=== PATIENT | male | born 1950 | race Caucasian/White ===

== ENCOUNTER 2019-07-02 09:05 | Outpatient (CLI) | payer OTHER, SELFPAY ==
--- NOTE | 2019-07-02 10:24 | ONCRAD EPV_ITS ---
Radiation Oncology Established Patient Visit Patient: Mikalea MR#: [id number] : 1950> Age: 69> Sex: Male> Dictated by: Dr. Joaquin Armendariz Date of Service: 07/02/2019 Referring Physician(s) : Branden Cuellar Diagnosis: C61 - Malignant neoplasm of prostate, Diagnosed 11/23/2017 (Active) Radiotherapy to Date: Course: Prostate Treatment Site: [id number] Ref. ID: [id number] Energy: 6X Dose/Fx (cGy): 200 #Fx: / 27 Dose Correction (cGy): 0 Total Dose (cGy): 5,400 Start Date: 03/19/2018 End Date: 04/25/2018 Elapsed Days: 37 Course: Prostate Treatment Site: PTV80 Ref. ID: [id number] Energy: 6X Dose/Fx (cGy): 200 #Fx: 13 / 13 Dose Correction (cGy): 0 Total Dose (cGy): 2,600 Start Date: 04/26/2018 End Date: 05/14/2018 Elapsed Days: 18 Chief Complaint / History of Present Illness: The patient is a 67 year old gentleman with a recently diagnosed T1c, N0, M0 adenocarcinoma of the prostate, Schroeder score 3+4, PSA 10.4 ng/ml, intermediate risk disease. He is status post combination therapy with external beam radiation therapy and short-term hormonal therapy. The patient is doing well overall. Side effects from ADT have resolved. He notes nocturia ???4-5 and dribbling sometimes but denies dysuria, urinary urgency, frequency, weak stream, incontinence, hematuria, rectal irritation or bleeding. His PSA was 0.65 on 06/11/2018, 0.11 on 09/09/2018, 0.09 ng.ml on 02/03/2019 and 0.17 on 06/27/2019. Current Medications: Flonase Allergy Relief, lisinopril, triamcinolone Acetonide, vitamin D (Cholecalciferol). Allergies: No Known Allergies Current Complaints / Review of Systems: Constitutional - Complains of mild fatigue. Denies lack of appetite, fever and night sweats. Eyes - Denies blurred vision. ENMT - Complains of tinnitus. Denies dysphagia, ear pain, mouth dryness, stomatitis and altered taste. Neck - Denies neck pain. Integumentary - Denies rash. Cardiovascular - Denies arrhythmias and chest pain. Respiratory - Complains of cough due to sinus drainage. Complains of dyspnea associated with normal activity. Denies wheezing. Gastrointestinal - Denies abdominal pain, constipation, diarrhea, heartburn / dyspepsia, melena / GI bleeding, nausea and vomiting. Genitourinary (M) - Complains of frequency since Radiation Tx. and nocturia gets up about 4 to 5 times. Denies dysuria, incontinence but has occasional dribbling after finishing urination. and urgency. Musculoskeletal - Denies bone pain and joint pain. Neurologic - Denies dizziness, abnormal gait and headaches. Endocrine - Denies diabetes and thyroid disease.. Vital Signs: Performed on 07/02/2019 9:34 AM BMI - 31.796 kg/m2 (high), Height - 73.00 in, Weight - 241.0 lbs, Temperature - 98.5 f, Pulse - 81, Respiration - 20, O2 Sat - 95 % (low), Pain - 0 and BP - 132/ 82 mm(hg). Physical Exam: General: Alert and oriented x 3. No acute distress. HEENT: Normocephalic, atraumatic. Extraocular Movements Intact: Pupils Equal, Round, Reactive to Light and Accommodation: Sclerae anicteric. Oral cavity is clear without lesions, masses or ulcers. NECK: Supple without supraclavicular or jugular lymphadenopathy. LUNGS: Clear to auscultation bilaterally without rales, rhonchi or wheeze. HEART: Regular rate and rhythm, normal S1 and S2 without murmur, gallop or rub. MUSCULOSKELETAL: No tenderness or percussion pain over the axial skeleton, scapulae or pelvis. ABDOMEN: Soft, nontender, nondistended without masses or organomegaly. Bowel sounds are present. EXTREMITIES: No peripheral edema is identified. Limited motor and sensory examination are grossly intact and symmetric bilaterally. NEUROLOGIC: Cranial nerves II ???XII are grossly intact. Normal sensation, strength 5/5 in all extremities, normal gait, no ataxia. Performance Status: 0 - Fully active, able to carry on all predisease activities without restrictions. (ECOG) Lab: PSA 0.17 ng/ml on 06/27/2019 Pathology: adenocarcinoma of prostate, GS 3+4 Impression/plan: There is no clinical evidence of recurrence or late radiation toxicities. We will continue cancer surveillance. We will check his PSA in 4-6 months and he will follow up with us afterwards. Signed by: 07/02/2019 12:59:01 PM <<Signature on File>> CPT Code: CPT Code: Signed By: Dr. Joaquin Armendariz, 07/02/2019 12:59:01 PM <<Signature on File>>
== END 2019-07-02 09:06 | disposition home or self-care (01) ==
LOC: ONCMED 09:07
PROVIDERS: Family Provider Nurse Practitioner; PCP Internal Medicine; Visit Provider Radiology Radiation Oncology
DX: C61 Malignant neoplasm of prostate (principal); Z92.3 Personal history of irradiation
CPT/HCPCS: 99213

== ENCOUNTER → 2019-10-14 13:04 | Outpatient (BNVA) | payer OTHER, SELFPAY | PROVIDERS: Family Provider Nurse Practitioner; PCP Nurse Practitioner; Referring Provider Nurse Practitioner; Visit Provider Urology | DX: C61 Malignant neoplasm of prostate (principal); N20.1 Calculus of ureter; N40.1 Benign prostatic hyperplasia with lower urinary tract symptoms; N39.41 Urge incontinence | CPT/HCPCS: 81001 ==

== ENCOUNTER 2020-01-01 08:56 | Outpatient (CLI) | payer OTHER, SELFPAY ==
--- NOTE | 2020-01-01 12:04 | ONCRAD EPV_ITS ---
Radiation Oncology Established Patient Visit Patient: Giovanny Lockwood MR#: [id number] : 1950 Age: 69 Sex: Male Dictated by: Dr. Casey Brito Date of Service: 01/01/2020 Referring Physician(s) : Branden Cuellar Diagnosis: C61 - Malignant neoplasm of prostate, Diagnosed 11/23/2017 (Active) Radiotherapy to Date: Course: Prostate, Treatment Site: PTV54, Ref. ID: [id number], Energy: 6X, Dose/Fx (cGy): 200, #Fx: 27 / 27, Dose Correction (cGy): 0, Total Dose (cGy): 5,400, Start Date: 03/19/2018, End Date: 04/25/2018, Elapsed Days: 37 Prostate, Treatment Site: PTV80, Ref. ID: [id number], Energy: 6X, Dose/Fx (cGy): 200, #Fx: 13 / 13, Dose Correction (cGy): 0, Total Dose (cGy): 2,600, Start Date: 04/26/2018, End Date: 05/14/2018, Elapsed Days: 18 Chief Complaint / History of Present Illness: The patient is a 69-year-old male with intermediate risk prostate cancer who was treated with short course androgen deprivation therapy and definitive radiation therapy as described above. Completed radiation therapy in April 2018, and in follow-up today he reports no persistent diarrhea, no bloody stools, no bone pain, and no worsening urinary symptoms. International prostate symptom score was completed today revealing a total score of 17 indicating moderate urinary symptoms. The patient reports that he is mixed with respect to his quality of life due to urinary symptoms. The patient's most recent PSA is 0.4 ng/mL (December 11, 2019 as ordered by [facility], Stella See, Nurse Practitioner). Current Medications: Flonase Allergy Relief, lisinopril, tamsulosin HCl, triamcinolone Acetonide, vitamin D (Cholecalciferol). Allergies: No Known Allergies Current Complaints / Review of Systems: Constitutional - Complains of mild fatigue. Denies lack of appetite, fever and night sweats. Eyes - Denies blurred vision and double vision. ENMT - Complains of tinnitus. Denies dysphagia, ear pain, mouth dryness, stomatitis and altered taste. Neck - Denies neck pain and decreased range of motion. Integumentary - Denies rash. Cardiovascular - Denies arrhythmias, chest pain and edema. Respiratory - Complains of cough occasionally related to sinus drainage. Denies dyspnea and wheezing. Gastrointestinal - Denies abdominal pain, constipation, diarrhea, heartburn / dyspepsia, hemorrhoids, melena / GI bleeding, nausea and vomiting. No rectal bleeding or irritation. Genitourinary (M) - Complains of frequency but started on Flomax 0.4 mg in October 2019. Complains of impotence associated with radiation therapy. Complains of nocturia gets up about 4 to 5 times per night. Denies dysuria and urgency. Musculoskeletal - Denies bone pain, joint pain and muscle weakness. Neurologic - Complains of intermittent dizziness that occurs upon sitting to standing associated with medications. Denies abnormal gait and headaches. Endocrine - Denies diabetes, hot flashes and thyroid disease. Hematologic/Lymphatic - Denies tender or enlarged lymph nodes.. Vital Signs: Performed on 01/01/2020 9:26 AM BMI - 31.084 kg/m2 (high), Height - 73.00 in, Weight - 235.6 lbs, Temperature - 98.0 f, Pulse - 82, Respiration - 20, O2 Sat - 94 % (low), Pain - 0 and BP - 130/ 76 mm(hg). Physical Exam: General: Alert and oriented x 3. No acute distress. HEENT: Normocephalic, atraumatic. Extraocular Movements Intact: Pupils Equal, Round, Reactive to Light and Accommodation: Sclerae anicteric. NECK: Supple without supraclavicular or jugular lymphadenopathy. LUNGS: Clear to auscultation bilaterally without rales, rhonchi or wheeze. HEART: Regular rate and rhythm, normal S1 and S2 without murmur, gallop or rub. EXTREMITIES: No peripheral edema is identified. Limited motor and sensory examination are grossly intact and symmetric bilaterally. NEUROLOGIC: Cranial nerves II ???XII are grossly intact. Normal sensation, strength 5/5 in all extremities, normal gait, no ataxia. Performance Status: 0 - Fully active, able to carry on all predisease activities without restrictions. (ECOG) Lab: None pending. Pathology: Primary, c61 - malignant neoplasm of prostate, Diagnosed 11/23/2017 (active). Imaging: See HPI Impression: The patient is a 69-year-old male with intermediate risk prostate cancer who was treated with short course androgen deprivation therapy followed by definitive radiation therapy which completed in April 2018. In follow-up today the patient shows no evidence of biochemical failure. I recommend continuing to follow-up with a medical care provider every 6 months with a repeat PSA, and these laboratory values are to be shared with us. [facility] draws[facility] The patient is scheduled to see Dr. Callejas on ~January 13. The patient may follow-up with us in 1 year. Signed by: 01/01/2020 12:03:31 PM <<Signature on File>> Time spent with patient: CPT Code: CPT Code:
== END 2020-01-01 08:57 | disposition home or self-care (01) ==
LOC: ONCMED 08:59
PROVIDERS: PCP Nurse Practitioner; Visit Provider Radiology Radiation Oncology
DX: C61 Malignant neoplasm of prostate (principal); Z92.3 Personal history of irradiation; Z92.23 Personal history of estrogen therapy
CPT/HCPCS: 99213; 99214

== ENCOUNTER → 2020-01-14 09:17 | Outpatient (BNVA) | payer OTHER, SELFPAY | PROVIDERS: PCP Nurse Practitioner; Visit Provider Urology | DX: N40.1 Benign prostatic hyperplasia with lower urinary tract symptoms (principal); R35.0 Frequency of micturition; N39.41 Urge incontinence; Z85.46 Personal history of malignant neoplasm of prostate | CPT/HCPCS: 81001 ==

== ENCOUNTER → 2020-05-17 09:15 | Outpatient (BNVA) | payer OTHER, SELFPAY | PROVIDERS: PCP Nurse Practitioner; Visit Provider Urology | DX: R35.0 Frequency of micturition (principal); C61 Malignant neoplasm of prostate; N39.41 Urge incontinence; R35.8 Other polyuria | CPT/HCPCS: 81003 ==

== ENCOUNTER → 2020-11-15 09:15 | Outpatient (BNVA) | payer OTHER, SELFPAY | PROVIDERS: PCP Nurse Practitioner; Visit Provider Urology | DX: C61 Malignant neoplasm of prostate (principal); R35.0 Frequency of micturition; N39.41 Urge incontinence; R35.8 Other polyuria; F17.210 Nicotine dependence, cigarettes, uncomplicated | CPT/HCPCS: 81003; G0103 ==

== ENCOUNTER → 2021-02-03 08:07 | Outpatient (BNVA) | payer OTHER, SELFPAY | PROVIDERS: PCP Nurse Practitioner; Visit Provider Surgery | DX: Z20.822 Contact with and (suspected) exposure to COVID-19 (principal) | CPT/HCPCS: 87635 ==

== ENCOUNTER → 2021-02-04 15:23 | Outpatient (BNVA) | payer OTHER, SELFPAY | PROVIDERS: PCP Nurse Practitioner; Visit Provider Surgery | DX: Z86.010 Personal history of colon polyps (principal); Z20.822 Contact with and (suspected) exposure to COVID-19 | CPT/HCPCS: 87635 ==

== ENCOUNTER 2021-02-09 07:50 | Day surgery (SDC) | payer OTHER, SELFPAY ==
[2021-02-07 13:35] VITALS: BMI 30.3
--- NOTE | 2021-02-09 08:15 | ANES.PREANE2 ---
Pre-Anesthetic Assessment Pre-Anesthetic Assessment: Height/Weight: Height 1.85 m Weight 104.326 kg Preop Diagnosis: colon polyps Proposed Procedure: Operation Date: 02/09/21 09:45 Proposed Procedures p Colonoscopy 77583 z86.010(Not Applicable) - Vidal Nazario MD Familial anesthetic complications: None Was Beta Collins taken within 24 hours: N/A Was Clonidine taken within 24 hours: N/A Last intake: > 8 hrs Social: Social History: Tobacco and No alcohol Exam: Pre-Anes Outpt Exam: alert, oriented x 3, clear to auscultation bilaterally and regular rate & rhythm Airway: Cervical ROM: WNL MP: 4 Dentition: Chipped Pulmonary: Pulmonary: COPD CV/HEM: CV/HEM: HTN Anesthetic Plan: ASA status: 2 Anesthesia: MAC Risk of > 500 ml blood loss (7ml/kg in children): No PFSH Anesthesia PFSH: Medical History BPH NOS w ur obs/LUTS H/O prostate cancer Hypertension Urgency incontinence Surgical History H/O colonoscopy H/O prostate biopsy Family History Mother , 86 Cancer Colon Father , 76 Dementia Social History Smoking and tobacco status: current every day smoker Alcohol intake: never Marital status: Current occupational status: retired History of recent travel: No Data Anesthesia Cardiac Studies: No Data to Display
[2021-02-09 08:42] VITALS: BP 120/82; PULSE 79; RESP 18; TEMP 36.8
[2021-02-09] MEDS: sodium chloride 0.9% 1,000 ML 30 ML IV (09:11)
--- NOTE | 2021-02-09 10:16 | P.HP_ITS ---
Same Day Surgery H&P Indication for Procedure/HPI DATE OF PROCEDURE: February 09, 2021 CHIEF COMPLAINT/INDICATIONFOR SURGICAL PROCEDURE: Had polyps before PREOP DIAGNOSIS: History of colon polyps PLANNED PROCEDRUE: Operation Date: 02/09/21 09:45 Proposed Procedures p Colonoscopy 42941 z86.010(Not Applicable) - Vidal Nazario MD This is a pleasant 70 years old gentleman well-known to me from previous clinical encounters as he did undergo back in 2019 colonoscopy and found to have multiple polyps. Patient denies currently bleeding per rectum or history of weight loss. He is well-known with history of prostate cancer that undergone treatment for that. Patient comes today to discuss surveillance colonoscopy. Interim history 02/09/2021 Patient comes today for surveillance colonoscopy ROS All systems have been reviewed negative except as per the above or per problem list Medications/Allergies* Home Medications Medication Instructions Recorded Confirmed Type fluticasone furoate 27.5 1 spray INTRANASAL DAILY 10/14/19 02/09/21 History mcg/actuation nasal spray,suspension lisinopril 20 mg tablet 20 mg PO DAILY 10/14/19 02/09/21 History triamcinolone acetonide 0.1 % 1 applic TOPICAL DAILY 10/14/19 02/09/21 History topical cream albuterol sulfate 90 mcg/actuation 1 inh INHALATION QID 12/16/20 02/09/21 History aerosol inhaler budesonide-formoterol HFA 160 2 puff INHALATION BID 12/16/20 02/09/21 History mcg-4.5 mcg/actuation aerosol inhaler Allergies/Adverse Reactions Allergy/AdvReac Type Severity Reaction Status Date / Time tamsulosin Allergy Unknown Verified 02/09/21 10:17 Current Medications: Generic Name Dose Route Start Last Admin Trade Name Freq PRN Reason Stop Dose Admin Sodium Chloride 1,000 mls @ 30 mls/hr 02/09/21 08:30 02/09/21 09:11 Sodium Chloride 0.9% IV 02/10/21 08:29 30 mls/hr .Q24H JAZZ Administration Pertinent History/Comorbid Conditions* Medical History (Updated 12/18/20 @ 16:36 by Vidal Nazario MD) BPH NOS w ur obs/LUTS H/O prostate cancer Hypertension Urgency incontinence Surgical History (Updated 05/17/20 @ 09:34 by Trip Callejas MD) H/O colonoscopy H/O prostate biopsy Family History (Updated 10/14/19 @ 13:01 by Genna De La Paz RN) Father, 76 Mother, 86 Dementia Father Cancer Mother Colon Social History Smoking and tobacco status: current every day smoker Alcohol intake: never Marital status: Current occupational status: retired History of recent travel: No Pertinent Exam Findings alert, oriented x 3, clear to auscultation bilaterally, regular rate & rhythm and procedure specific exam findings (Abdominal examination nontender nondistended soft) Recommendations Surgery/Procedure today (Colonoscopy with possible biopsy) Other Plans: Plan of care; After thorough history and physical examination and reviewing the chart, plan to perform surgery surveillance colonoscopy. I discussed with the patient in details the risks,benefits,alternatives and indications.The risk of aspiration, bleeding, soft tissue injury, perforation of the colon and other potential concomitant complications were explained to the patient in details,also the potential need for Laproscoy/Laparotomy to repair any related complications including but not limited to colectomy and or Closotomy.The patient understood this well and did agree to proceed. Rationale was carefully and clearly discussed with the patient.Appropriate informed consent have been reviewed and signed All questions have been answered and all concerns have been addressed to patient's satisfaction. Verbal and written Instructions were given to the patient for colonoscopy prep Coding Level of Care Code Acute Human Resources Benefits Specialist for Marleni Herbert
[2021-02-09 10:43] VITALS: BP 119/81; PULSE 66; RESP 16; TEMP 36.1; O2SAT 95
[2021-02-09 10:55] VITALS: BP 138/74; PULSE 65; RESP 18; O2SAT 95
--- NOTE | 2021-02-09 13:40 | ANE.PACU2 ---
Inpatient post-anesthesia follow up: Airway intact: Yes Vital signs: Temperature 97.0 F Pulse Rate 65 Respiratory Rate 18 Blood Pressure 138/74 Pulse Oximetry 95 Oxygen Delivery Me thod Room Air Oxygen Flow Rate Fraction of Inspir ed Oxygen Hydration adequate: Yes Nausea and vomiting: No Pain level: 2 Mental status: Baseline
== END 2021-02-09 11:20 | disposition home or self-care (01) ==
PROVIDERS: PCP Nurse Practitioner; Visit Provider Surgery
PROC: 0DJD8ZZ Inspection of Lower Intestinal Tract, Via Natural or Artificial Opening Endoscopic (ICD-10-PCS; CPT 45378; principal; 2021-02-09 09:45)
DX: Z12.11 Encounter for screening for malignant neoplasm of colon (principal); Z86.010 Personal history of colon polyps; D12.2 Benign neoplasm of ascending colon; K57.30 Diverticulosis of large intestine without perforation or abscess without bleeding; D12.8 Benign neoplasm of rectum; N40.1 Benign prostatic hyperplasia with lower urinary tract symptoms; N13.8 Other obstructive and reflux uropathy; Z85.46 Personal history of malignant neoplasm of prostate; I10 Essential (primary) hypertension; F17.210 Nicotine dependence, cigarettes, uncomplicated
CPT/HCPCS: 45380; 45385; 88305; 96360; 96361; J2704; J7030

== ENCOUNTER → 2021-05-18 09:28 | Outpatient (BNVA) | payer OTHER, SELFPAY | PROVIDERS: PCP Nurse Practitioner; Visit Provider Urology | DX: R97.20 Elevated prostate specific antigen [PSA] (principal); R35.0 Frequency of micturition; C61 Malignant neoplasm of prostate | CPT/HCPCS: 81003; 84153 ==

== ENCOUNTER → 2022-01-26 12:50 | Outpatient (BNVA) | payer OTHER, SELFPAY | PROVIDERS: PCP Nurse Practitioner; Visit Provider Urology | DX: C61 Malignant neoplasm of prostate (principal); R35.0 Frequency of micturition | CPT/HCPCS: 81003; 99213 ==

== ENCOUNTER 2022-07-31 02:54 | Emergency (ER) | payer OTHER, SELFPAY ==
[2022-07-31 02:57] VITALS: BP 122/68; PULSE 91; RESP 18; TEMP 36.7; O2SAT 92; BMI 30.3
--- NOTE | 2022-07-31 03:41 | CTR_ITS ---
PROCEDURE INFORMATION: Exam: CT Thoracic Spine Without Contrast Exam date and time: 07/31/2022 4:33 AM Age: 72 years old Clinical indication: Numbness; Pain in thoracic spine; Patient HX: HX prostate CA; Additional info: Upper back pain, paresthesias TECHNIQUE: Imaging protocol: Computed tomography of the thoracic spine without contrast. Radiation optimization: All CT scans at this facility use at least one of these dose optimization techniques: automated exposure control; mA and/or kV adjustment per patient size (includes targeted exams where dose is matched to clinical indication); or iterative reconstruction. Other protocol: This patient has received 0 known CTs and 0 known cardiac nuclear medicine studies in the 12 months prior to the current study. COMPARISON: CR (CHEST, ) 07/31/2022 4:20 AM RADIATION DOSE METRICS: Total DLP (mGy-cm): 930 FINDINGS: Bones/joints: Mild scoliosis. Moderate diffuse thoracic degenerative change. No acute fracture or aggressive bone lesion visualized. There is paraspinal prevertebral soft tissue prominence in the upper thoracic spine. See series 4, image 37. Soft tissues: Unremarkable. Vasculature: Advanced diffuse vascular calcification noted. Large pulmonary arteries. Partially imaged retroaortic left renal vein. Lungs: [id number]-[id number] COPD. Left suprahilar mass is present, which measures up to about 5.2 x 4.3 cm. There is also, peripheral to this, left upper lobe tubular opacity which may be due to endobronchial plugging or neoplastic extension. Liver: Few minute hepatic hypodensities, too small to characterize. Adrenal glands: Bilateral adrenal nodularity. This has the appearance of hyperplasia. A few lipid rich adenomas are also likely. Other findings: Small hiatal hernia. CT/CT thoracic spin wo con* [id number] IMPRESSION: 1. Large left suprahilar mass may be a bronchogenic carcinoma or metastatic lesion. 2. Large upper thoracic prevertebral masses as described, which may be due to pleural metastases, extramedullary hematopoiesis, or other neoplastic process. An MRI thoracic spine should be considered to work this up and to assess for any intrathecal/epidural involvement or extension. 3. COPD, atherosclerosis, and other chronic findings. 4. No acute fracture visualized.
--- NOTE | 2022-07-31 03:41 | XRR_ITS ---
PROCEDURE INFORMATION: Exam: XR Chest Exam date and time: 07/31/2022 4:20 AM Age: 72 years old Clinical indication: Pain; Chest pressure; Additional info: Upper back pain TECHNIQUE: Imaging protocol: Radiologic exam of the chest. Views: 1 view. COMPARISON: CT abdomen pelvis wo/w [id number] 01/08/2018 9:42 AM FINDINGS: Lungs: [id number] COPD likely hyperexpansion. Lung base atelectasis or scarring. Pleural spaces: Unremarkable. No pleural effusion. No pneumothorax. Heart/Mediastinum: The heart is normal size. Left hilar prominence. Bones/joints: Unremarkable. XR/XR chest 1V portable [id number] IMPRESSION: 1. Left hilar prominence, with no priors. Left hilar mass lesion possible. Consider need for CT chest. Advise correlation. 2. COPD.
--- NOTE | 2022-07-31 03:54 | ECG_ITS ---
[facility] Test Date: 2022-07-31 Pat Name: Giovanny Lockwood Department: Room: Gender: Male Pedorthist: : 1950 Requested By: Bird Abdul Order Number: [id number] Joseph MD: Reny No M.D. Measurements Intervals [place] Rate: 84 P: 85 VA: 182 QRS: -69 QRSD: 114 T: 65 QT: 345 QTc: 408 Interpretive Statements SINUS RHYTHM WITH SINUS ARRHYTHMIA INCOMPLETE RIGHT BUNDLE BRANCH BLOCK [90+ ms QRS DURATION, TERMINAL R IN V1/V2, 40+ ms S IN I/aVL/V4/V5/V6] LEFT ANTERIOR FASCICULAR BLOCK [QRS AXIS <= -45, QR IN I, RS IN II] No previous ECG available for comparison Electronically Signed On 07-31-2022 21:56:33 SOCK IRONER by Reny No M.D. [email or web address]
[2022-07-31 03:57] VITALS: BP 115/70; PULSE 87; RESP 15; O2SAT 91
[2022-07-31 04:08] LABS: Basophils # 0.1 10^3/uL (0.0-0.1); Basophils % 0.8 %; Eosinophils # 0.2 10^3/uL (0.0-0.8); Eosinophils % 2.5 %; Hematocrit 50.2 % (42.0-52.0); Hemoglobin 17.1 g/dL (11.7-16.6); Lymphocytes # 1.3 10^3/uL (0.8-4.8); Lymphocytes % 16.7 %; Mean Corpuscular HGB Conc 34.1 g/dL (30.0-36.0); Mean Corpuscular Hemoglobin 32.5 pg (28.0-34.0); Mean Corpuscular Volume 95.4 fl (80-94); Mean Platelet Volume 10.6 fL (7.4-10.4); Monocytes # 0.7 10^3/uL (0.2-0.9); Monocytes % 8.6 %; Neutrophils # 5.45 10^3/uL (1.8-7.7); Nucleated Red Blood Cells % 0 %; Platelet Count 165 10^3/cmm (130-400); Red Blood Count 5.26 10^6/uL (4.1-5.3); Red Cell Distribution Width 11.9 % (12.1-15.1); White Blood Count 7.7 10^3/uL (4.0-10.0)
--- NOTE | 2022-07-31 04:30 | ED_ITS ---
HPI - Back Pain/Injury General: Chief Complaint: Back Pain/Injury Stated Complaint: BackPain\Losing Balance Time Seen by Provider: 07/31/22 03:14 Source: patient and family History of Present Illness: 72-year-old male here complaining of pain between his shoulder blades in his back for the last several days. He denies any injury. Denies significant shortness of breath or other chest pain. He awoke this morning at some point, noticed that his legs felt like they were numb and tingly. He has not lost sensation completely at all and can still feel. He notes that he almost fell because of balance problems. That is why he decided to come to the emergency department. He is not overly short of breath. He denies significant cough. He continues to complain of mid back pain between his shoulders. No groin numbness. No loss of control of bowel or bladder function. MD elicited complaint: back pain Pertinent past history: other Onset (ago): day(s) Timing: constant Severity: moderate Similar Symptoms Previously: No Quality: stabbing and aching Location: thoracic spine Radiation: none Exacerbating factors: movement Relieving factors: none Associated symptoms: Reports tingling/numbness/burning; Deny abdominal pain, chills, change in bowel habits, fecal incontinence, fever(s), nausea, urinary frequency or vomiting Review of Systems Const: Denies: fever(s) or chills ENMT: Denies: throat pain Card: Denies: chest pain Resp: Denies: dyspnea GI: Denies: abdominal pain, nausea, vomiting, fecal incontinence or change in bowel habits : Denies: flank pain or difficulty urinating Musc: Reports: back pain Skin/Breast: Denies: rash Neuro: Denies: headache(s) PFS ED PFSH: Medical History BPH NOS w ur obs/LUTS H/O prostate cancer Hypertension Urgency incontinence Surgical History H/O colonoscopy H/O prostate biopsy Family History Mother , 86 Cancer Colon Father , 76 Dementia Social History (Reviewed 07/31/22 @ 04:32 by ELOISA Toussaint Smoking and tobacco status: current some day smoker Alcohol intake: never Marital status: Current occupational status: retired History of recent travel: No Physical Exam Const: GENERAL APPEARANCE: ill appearing (Mildly); not frail appearing HENMT: COMMON NORMALS: normocephalic, atraumatic and Normal external nose present HEAD & SCALP: normocephalic and atraumatic FACE & SINUS: normal facial exam and face symmetric NOSE: Normal external nose present Eye: COMMON NORMALS: Equal, round and reactive pupils present and EOMs intact bilaterally PUPIL: Yes Equal, round and reactive pupils present Neck/C-Spine: GENERAL: Yes trachea midline Chest: CHEST: Yes Symmetrical chest wall rise Resp: COMMON NORMALS: normal respiratory effort, No use of accessory muscles and clear to auscultation bilaterally AUSCULTATION: clear to auscultation bilaterally Cardio: COMMON NORMALS: regular rate and regular rhythm RATE: regular rate RHYTHM: regular rhythm GI: COMMON NORMALS: Normal to inspection, nondistended, normoactive bowel sounds present, Soft to palpation and non-tender PALPATION: Yes Soft to palpation Back/Pelvis: OTHER: Examination reveals no deformity of the spine. There is no reproducible tenderness. Leg raise testing does not increase pain or cause radicular pain down the legs. Extremity: NARRATIVE EXTREMITY EXAM: Sensation is grossly intact to touch to the bilateral lower extremities. There is mild edema present. There are changes of stasis dermatitis of the skin. Neuro: SIMA COMA SCALE: document GCS findings Sima coma scale eye opening: Spontaneous Matthews coma scale verbal response: Orientated Sima coma scale motor response: Obey commands Matthews coma scale total score: 15 OTHER: See above Psych: COMMON NORMALS: mental status grossly normal and cooperative Course Vital Signs: Vital signs: Vital Signs Temperature 98.0 F 07/31/22 02:57 Pulse Rate 87 07/31/22 03:57 Respiratory Rate 15 07/31/22 03:57 Blood Pressure 115/70 07/31/22 03:57 Pulse Oximetry 91 07/31/22 03:57 Oxygen Delivery Me thod 07/31/22 03:57 MDM - Back Pain/Injury Medical Decision Making 72-year-old male with thoracic back pain. He notes that the paresthesias are essentially gone in his feet. He is at his baseline he says in terms of his oxygen. His oxygen saturations on room air 91 to 92%. He is a longtime smoker. Hemoglobin is 17.1. White blood cell count of 7. His D-dimer was significantly elevated. Delta troponin is normal. His CRP is 3. CT of the chest reveals no PE, but a large left suprahilar mass suggestive of lung cancer. He has thoracic prevertebral masses as well. This is likely the cause of his back pain. With resolution of his paresthesias, baseline oxygen status, the patient will be allowed discharge. He is counseled on his diagnosis. We will ask our director of casework services to obtain him appointments with chest surgery for outpatient follow-up of the mass. Labs 07/31/22 03:53 07/31/22 03:53 Radiology Impressions Chest X-Ray 07/31/22 03:41 IMPRESSION: 1. Left hilar prominence, with no priors. Left hilar mass lesion possible. Consider need for CT chest. Advise correlation. 2. COPD. Thoracic Spine CT 07/31/22 03:41 IMPRESSION: 1. Large left suprahilar mass may be a bronchogenic carcinoma or metastatic lesion. 2. Large upper thoracic prevertebral masses as described, which may be due to pleural metastases, extramedullary hematopoiesis, or other neoplastic process. An MRI thoracic spine should be considered to work this up and to assess for any intrathecal/epidural involvement or extension. 3. COPD, atherosclerosis, and other chronic findings. 4. No acute fracture visualized. Chest CTA 07/31/22 04:35 IMPRESSION: 1. Left upper lobe pulmonary mass and upper thoracic paravertebral soft tissue mass consistent with malignancy. 2. Negative for pulmonary embolism. Laboratory Results WBC 7.7 10^3/uL (4.0-10.0) 07/31/22 03:53 RBC 5.26 10^6/uL (4.1-5.3) 07/31/22 03:53 Hgb 17.1 g/dL (11.7-16.6) H 07/31/22 03:53 Hct 50.2 % (42.0-52.0) 07/31/22 03:53 MCV 95.4 fl (80-94) H 07/31/22 03:53 MCH 32.5 pg (28.0-34.0) 07/31/22 03:53 MCHC 34.1 g/dL (30.0-36.0) 07/31/22 03:53 RDW 11.9 % (12.1-15.1) L 07/31/22 03:53 Plt Count 165 10^3/cmm (130-400) 07/31/22 03:53 MPV 10.6 fL (7.4-10.4) H 07/31/22 03:53 Neut % (Auto) 71.0 % 07/31/22 03:53 Lymph % (Auto) 16.7 % 07/31/22 03:53 [place] % (Auto) 8.6 % 07/31/22 03:53 Eos % (Auto) 2.5 % 07/31/22 03:53 Baso % (Auto) 0.8 % 07/31/22 03:53 Neut # (Auto) 5.45 10^3/uL (1.8-7.7) 07/31/22 03:53 Lymph # (Auto) 1.3 10^3/uL (0.8-4.8) 07/31/22 03:53 [place] # (Auto) 0.7 10^3/uL (0.2-0.9) 07/31/22 03:53 Eos # (Auto) 0.2 10^3/uL (0.0-0.8) 07/31/22 03:53 Baso # (Auto) 0.1 10^3/uL (0.0-0.1) 07/31/22 03:53 Nucleated RBC % (auto) 0 % 07/31/22 03:53 Nucleated RBCs # 0.0 /100WBC 07/31/22 03:53 D-Dimer 2.40 ug/mIFEU (0-0.59) H 07/31/22 03:53 Sodium 134 mmol/L (136-145) L 07/31/22 03:53 Potassium 4.4 mmol/L (3.5-5.1) 07/31/22 03:53 Chloride 98 mmol/L (98-107) 07/31/22 03:53 Carbon Dioxide 25 mmol/L (22-29) 07/31/22 03:53 Anion Gap 15.4 (5-19) 07/31/22 03:53 BUN 10 mg/dL (8-23) 07/31/22 03:53 Creatinine 0.8 mg/dL (0.7-1.2) 07/31/22 03:53 GFR Calculation Not Reportable 07/31/22 03:53 Glucose 113 mg/dL (65-115) 07/31/22 03:53 Calculated Osmolality 278 mOsm/kg (285-295) L 07/31/22 03:53 Calcium 9.9 mg/dL (8.5-10.5) 07/31/22 03:53 Total Bilirubin 0.7 mg/dL (0.15-1.2) 07/31/22 03:53 AST 20 U/L (0-40) 07/31/22 03:53 ALT 18 U/L (0-41) 07/31/22 03:53 Alkaline Phosphatase 86 U/L (40-130) 07/31/22 03:53 Troponin T Baseline 12 ng/L (0-15) 07/31/22 03:53 Troponin T 120 Minute 11.97 ng/L (0-15) 07/31/22 06:01 Delta Troponin T -0.03 ABS# (0-10) L 07/31/22 06:01 C-Reactive Protein 3.0 mg/L (0.0-4.9) 07/31/22 03:53 NT-Pro-B Natriuret Pep 36 pg/mL (0-125) 07/31/22 03:53 Total Protein 7.0 g/dL (6.6-8.7) 07/31/22 03:53 Albumin 4.4 g/dL (3.5-5.2) 07/31/22 03:53 Globulin 2.6 g/dL (1.3-4.6) 07/31/22 03:53 Discharge Plan Discharge Patient Disposition: Home Clinical Impression: Lung mass Condition: Stable Prescriptions: New hydrocodone-acetaminophen 5-325 mg tablet 1 tab PO Q8H PRN (Reason: pain) Qty: 12 0RF No Action albuterol sulfate [ProAir HFA] 90 mcg/actuation HFA aerosol inhaler 1 inh inhalation QID lisinopril 20 mg tablet 20 mg PO DAILY Flonase Sensimist 27.5 mcg/actuation spray,suspension 1 spray INTRANASAL DAILY triamcinolone acetonide 0.1 % cream 1 applic TOPICAL DAILY fluticasone propion-salmeterol 250-50 mcg/dose blister with device 1 inh inhalation BID Discharge Orders: Discharge ED (Routine); Ordered 07/31/22 Ordered By: Bird Mcmullen Referrals: Stella See FNP [Primary Care Provider] - 1-3 days Patient Instructions: Back Pain (ED), Opioid Safety, Pain Management Activity Restrictions/Additional Instructions: Return for fever, worsening pain despite treatment, weakness to the legs, other concerning symptoms. Our case management will attempt to get you an appointment with chest surgery for follow-up. You should hear from her early this week. Follow-up with your doctor later this week. Coding Level of Care Code ED Clamshell Engineer for Marleni Herbert
--- NOTE | 2022-07-31 04:35 | CTR_ITS ---
PROCEDURE INFORMATION: Exam: CTA Chest With Contrast Exam date and time: 07/31/2022 5:48 AM Age: 72 years old Clinical indication: Pain; Chest pressure; Additional info: Chest pain, upper back pain TECHNIQUE: Imaging protocol: Computed tomographic angiography of the chest with contrast. 3D rendering (Not supervised by radiologist): MIP and/or 3D reconstructed images were created by the technologist. Radiation optimization: All CT scans at this facility use at least one of these dose optimization techniques: automated exposure control; mA and/or kV adjustment per patient size (includes targeted exams where dose is matched to clinical indication); or iterative reconstruction. Contrast material: OMNI 350; Contrast volume: 100 ml; Contrast route: INTRAVENOUS (IV); Other protocol: This patient has received [address] and 0 known cardiac nuclear medicine studies in the 12 months prior to the current study. COMPARISON: CR (CHEST, ) 07/31/2022 4:20 AM RADIATION DOSE METRICS: Total DLP (mGy-cm): 536.01 FINDINGS: Pulmonary arteries: Normal. No pulmonary emboli. Aorta: Unremarkable. No aortic aneurysm. No aortic dissection. Lungs: Medial left upper lobe perihilar mass with circumscribed lobulated borders measures about 6.5 cm x 4.1 cm in the transaxial plane. Left upper lobe endobronchial obstruction with diffuse secretions partially filling the more central left upper lobe bronchi. Pleural spaces: Unremarkable. No pneumothorax. No pleural effusion. Heart: Unremarkable. No cardiomegaly. No pericardial effusion. Lymph nodes: Unremarkable. No enlarged lymph nodes. Bones/joints: Upper thoracic paravertebral soft tissue mass centered at T3 and T4. Osseous mineralization pattern is unremarkable. No focal lytic destructive bone lesion. No fracture. Soft tissues: Unremarkable chest wall soft tissues. CT/CT angio chest PE protcl [id number] IMPRESSION: 1. Left upper lobe pulmonary mass and upper thoracic paravertebral soft tissue mass consistent with malignancy. 2. Negative for pulmonary embolism.
[2022-07-31 04:39] LABS: Alanine Aminotransferase 18 U/L (0-41); Albumin Level 4.4 g/dL (3.5-5.2); Alkaline Phosphatase 86 U/L (40-130); Anion Gap 15.4 (5-19); Aspartate Amino Transferase 20 U/L (0-40); Blood Urea Nitrogen 10 mg/dL (8-23); Calcium 9.9 mg/dL (8.5-10.5); Carbon Dioxide 25 mmol/L (22-29); Chloride 98 mmol/L (98-107); Creatinine Clr Calc Pharmacy 105.8609; Globulin 2.6 g/dL (1.3-4.6); Glucose 113 mg/dL (65-115); NT Pro B Type Natriuretic Pept 36 pg/mL (0-125); Osmolality Calculated 278 mOsm/kg (285-295); Potassium 4.4 mmol/L (3.5-5.1); Sodium 134 mmol/L (136-145); Total Bilirubin 0.7 mg/dL (0.15-1.2)
[2022-07-31 04:40] LABS: Troponin(5th) Baseline 12 ng/L (0-15)
[2022-07-31] MEDS: iohexol 350 mg/mL 500 mL Btl (per mL) IV (04:58)
--- NOTE | 2022-07-31 05:42 | ECG_ITS ---
[facility] Test Date: 2022-07-31 Pat Name: Giovanny Lockwood Department: Room: Gender: Male Php Mysql Web Developer: : 1950 Requested By: Bird Abdul Order Number: [id number] Joseph MD: Reny No M.D. Measurements Intervals [place] Rate: 88 P: 83 NH: 172 QRS: -63 QRSD: 111 T: 62 QT: 349 QTc: 424 Interpretive Statements SINUS RHYTHM INCOMPLETE RIGHT BUNDLE BRANCH BLOCK [90+ ms QRS DURATION, TERMINAL R IN V1/V2, 40+ ms S IN I/aVL/V4/V5/V6] LEFT ANTERIOR FASCICULAR BLOCK [QRS AXIS <= -45, QR IN I, RS IN II] Compared to ECG 07/31/2022 03:54:02 Sinus arrhythmia no longer present Myocardial infarct finding no longer present Electronically Signed On 07-31-2022 22:17:13 BOREMATIC OPERATOR by Reny No M.D. [id number]
[2022-07-31 06:28] LABS: Troponin 5 2HR 11.97 ng/L (0-15)
[2022-07-31 06:36] LABS: Troponin 5 2HR Delta -0.03 ABS# (0-10)
--- NOTE | 2022-07-31 11:37 | DCPLANNER ---
Addendum entered by Neha Nelson 09/13/22 09:01: appointment cancelled Addendum entered by Neha Nelson 08/04/22 13:24: Patient has a follow up appointment scheduled for Monday, September 12, 2022 at 2:[address] Bonilla at pulmonology. Clinic will call patient with appointment information. Original Note: it portfolio manager had message to schedule a follow up appointment for patient with pulmonology. it portfolio manager sent patients information to the front office staff at [facility]. Patients information will be printed and reviewed. Clinic will call patient with appointment information.
== END 2022-07-31 08:03 | disposition home or self-care (01) ==
PROVIDERS: Emergency Provider Emergency Medicine; PCP Nurse Practitioner
DX: R91.8 Other nonspecific abnormal finding of lung field (principal); I10 Essential (primary) hypertension; Z85.46 Personal history of malignant neoplasm of prostate; F17.210 Nicotine dependence, cigarettes, uncomplicated
CPT/HCPCS: 36415; 71045; 71275; 72128; 80053; 83880; 84484; 85025; 85378; 86140; 93005; 99285; Q9967

== ENCOUNTER 2022-08-01 06:02 | Inpatient (IN) | payer OTHER, SELFPAY ==
[2022-08-01] VITALS (61 sets, daily range): BP systolic 68–130; BP diastolic 46–79; PULSE 67–102; RESP 14–23; TEMP 36.1–37.1; O2SAT 90–96; BMI 30.3
--- NOTE | 2022-08-01 | MR_ITS ---
WS: [id number] MRI THORACIC SPINE with and without contrast. HISTORY: Bilateral lower extremity pain and weakness. History of prostate cancer. COMPARISON: No similar studies. TECHNIQUE: Multiplanar sequences are performed in sagittal and axial planes. Post contrast imaging Mu ltiHance 20 mL IV. T3: Abnormal signal throughout the T3 vertebral body extending into the posterior elements bilaterall y with a small amount of abnormal signal extending to involve the posterior superior T3 vertebral bod y and pedicle. There is abnormal soft tissue in the paravertebral distribution centered at T3 extendi ng over a length of 6 cm to encase the vertebral body. There is soft tissue tumor extending into the T3-4 foramina. Soft tissue tumor encases and narrows the thoracic cord. Metastatic involvement encasi ng the thoracic cord extends over length of 4.3 cm. There is deformity and slight RIGHT displacement of the thoracic cord. Smaller amount of tumor extension into the T2-3 foramina. Abnormal signal exten ding into the facets of T3-T4 with enhancement. Additional tumor involvement in the T2 LEFT pedicle a nd facet. T8: Metastatic involvement with enhancement of the T8 vertebral body. Metastatic involvement is predo minantly in the mid and LEFT lateral vertebral body extending into the superior articular facets. The re is soft tissue tumor extending into the epidural location along the LEFT lateral thoracic cord wit h mild displacement. Epidural extension of tumor extends over length of 2.7 cm with mild compression upon the cord. L1: Metastatic involvement of the L1 LEFT posterior elements. Bulky lymphadenopathy centered at the AP window has been described on the recent chest CT. MR/MR thoracic spine wo/w [id number] IMPRESSION: 1. Significant metastatic bone and soft tissue involvement throughout the thor acic spine. 2. Metastatic tumor encasement and compression upon the thoracic cord centered at T3. Metastatic involvement of the T2, T3 and T4 vertebral bodies. Most sign ificant involvement at T3. 3. Metastatic tumor extends into the foramina bilaterally predominantly at T3- 4 with involvement of the nerve roots and contiguously to surround the thoracic cord. Additional paravertebral soft tissue involvement. 4. T8 metastatic involvement with epidural extension of tumor with mild cord c ompression. 5. L1 bony metastasis. 6. Bulky lymphadenopathy in the AP window. Notified Dr. Perez at 08/01/2022 10:21 AM.
--- NOTE | 2022-08-01 06:12 | ED_ITS ---
HPI - Extremity Problem General: Chief complaint: Extremity Problem,Nontraumatic Stated complaint: numbness in legs Time Seen by Provider: 08/01/22 06:11 Source: patient Mode of arrival: EMS History of Present Illness: 72-year-old male presents to the emergency room with complaints of loss of function of his lower extremities. He was seen about 36 hours ago in the emergency room found of a left upper lobe lung mass with extension into the thoracic spine with recommendation for an MRI at that time he did not have any acute neurologic symptoms beyond some numbness and tingling to his lower extremities since he was seen he got progressively worse and has lost the ability to use his lower extremities started having urinary incontinence intermittently he has not been able to attempt to completely urinate or had the urge to urinate in the last 24 hours. He has a history of COPD he is not usually on oxygen and is now requiring 2 L by nasal cannula he has not been using any of his regular inhaled medications. No history of diabetes no history of heart disease. He last ate at around 430 this morning he had a dominant and at around 230 he had a package of crackers. MD Complaint: other (Overflow incontinence, loss of lower extremity function) Onset (ago): hour(s) Location: left, right and lower extremity Relieving factors: nothing Exacerbating factors: nothing Associated symptoms: Reports short of breath; Deny arthralgias, chest pain, fever(s), myalgias or rash Review of Systems Const: Reports: fatigue; Denies: fever(s) or chills ENMT: Denies: throat pain, ear or mastoid pain, nasal discharge or nasal congestion Card: Denies: chest pain, palpitations, irregular heart rhythm, edema or swelling of feet/ankles Resp: Denies: dyspnea, productive cough or non-productive cough GI: Denies: abdominal pain, nausea, vomiting, hematemesis, coffee ground emesis, diarrhea, constipation, bloating, hematochezia or melena : Reports: difficulty urinating, oliguria and urinary incontinence; Denies: flank pain, dysuria, urinary frequency or urinary urgency Musc: Reports: muscle weakness (Lower extremities) Skin/Breast: Denies: rash Neuro: Reports: numbness in extremities, weakness in extremities and difficulty walking Reynold/Lymph: Denies: easy bruising or easy bleeding [facility] ED PFSH: Medical History (Updated 08/01/22 @ 07:07 by Johnny Morales DO) BPH NOS w ur obs/LUTS H/O prostate cancer History of colon polyps Hypertension Lung mass Prostate cancer Treated with radiation therapy 2018 with short course of hormonal manipulation. PSA 10.8 diagnosis. Urgency incontinence Surgical History (Updated 08/01/22 @ 07:01 by Johnny Morales DO) H/O colonoscopy H/O prostate biopsy S/P matrixectomy of toe Family History Mother , 86 Cancer Colon Father , 76 Dementia Social History Smoking and tobacco status: current some day smoker Alcohol intake: never Marital status: Current occupational status: retired History of recent travel: No Physical Exam Const: COMMON NORMALS: no acute distress GENERAL APPEARANCE: cooperative and comfortable ORIENTATION/CONSCIOUSNESS: Yes awake, Yes oriented to person, Yes oriented to place and Yes oriented to time HENMT: COMMON NORMALS: normocephalic, atraumatic and hearing grossly normal bilaterally HEAD & SCALP: normocephalic and atraumatic Resp: COMMON NORMALS: normal respiratory effort, No retractions and No use of accessory muscles AUSCULTATION: wheezes Cardio: COMMON NORMALS: regular rate, regular rhythm and No murmurs present (Cardio) RATE: regular rate RHYTHM: regular rhythm GI: COMMON NORMALS: Soft to palpation and No hepatosplenomegaly present AUSCULTATION: Yes normoactive bowel sounds PALPATION: Yes Soft to palpation, No Tenderness to palpation present (GI), No Guarding due to palpation present (GI) and Yes No hepatosplenomegaly present Extremity: COMMON NORMALS: normal to inspection, capillary refill normal, no clubbing, cyanosis or edema, no calf tenderness and no pedal edema Neuro: SENSORIUM/ORIENTATION: Yes oriented to person, Yes oriented to place and Yes oriented to time OTHER: Sensation lower extremities is intact but diminished. motor function is very poor patient can exert some effort against gravity and dorsum plantarflexion strength actively but cannot hold against resistance in either lower extremity. Skin: COMMON NORMALS: no rashes or lesions noted GENERAL SKIN EXAM: no rashes or lesions noted Course Vital Signs: Vital signs: Vital Signs Temperature 98.8 F 02/07/23 06:05 Pulse Rate 99 08/01/22 06:05 Respiratory Rate 16 08/01/22 06:05 Blood Pressure 120/79 08/01/22 06:05 Pulse Oximetry 90 08/01/22 06:05 Oxygen Delivery Me thod 08/01/22 06:05 MDM - Extremity (Nontraumatic) Medical Decision Making No history of trauma reviewed imaging from previous ER visit. Given patient's current symptoms suspected his reported incontinence was likely overflow incon tinence this was verified with placement of a [place] and he had nearly 1000 out immediately. Given this history and previous imaging he most likely has cord compression at the thoracic level. Discussed with Dr. Sparrow he is not on-call but is graciously willing to see the patient in consultation. Discussed with Dr. Mata will admit and get MRI lumbar and thoracic spine. Orders written for admission. Medical Records I reviewed the patient's medical records. Lab Data I reviewed the patient's lab results. 08/01/22 06:12 08/01/22 06:12 Laboratory Results WBC 8.1 10^3/uL (4.0-10.0) 08/01/22 06:12 RBC 5.29 10^6/uL (4.1-5.3) 08/01/22 06:12 Hgb 17.3 g/dL (11.7-16.6) H 08/01/22 06:12 Hct 50.3 % (42.0-52.0) 08/01/22 06:12 MCV 95.1 fl (80-94) H 08/01/22 06:12 MCH 32.7 pg (28.0-34.0) 08/01/22 06:12 MCHC 34.4 g/dL (30.0-36.0) 08/01/22 06:12 RDW 11.9 % (12.1-15.1) L 08/01/22 06:12 Plt Count 151 10^3/cmm (130-400) 08/01/22 06:12 MPV 10.8 fL (7.4-10.4) H 08/01/22 06:12 Neut % (Auto) 74.6 % 08/01/22 06:12 Lymph % (Auto) 14.5 % 08/01/22 06:12 [place] % (Auto) 7.6 % 08/01/22 06:12 Eos % (Auto) 2.2 % 08/01/22 06:12 Baso % (Auto) 0.7 % 08/01/22 06:12 Neut # (Auto) 6.02 10^3/uL (1.8-7.7) 08/01/22 06:12 Lymph # (Auto) 1.2 10^3/uL (0.8-4.8) 08/01/22 06:12 [place] # (Auto) 0.6 10^3/uL (0.2-0.9) 08/01/22 06:12 Eos # (Auto) 0.2 10^3/uL (0.0-0.8) 08/01/22 06:12 Baso # (Auto) 0.1 10^3/uL (0.0-0.1) 08/01/22 06:12 Nucleated RBC % (auto) 0 % 08/01/22 06:12 Nucleated RBCs # 0.0 /100WBC 08/01/22 06:12 Sodium 133 mmol/L (136-145) L 08/01/22 06:12 Potassium 4.1 mmol/L (3.5-5.1) 08/01/22 06:12 Chloride 96 mmol/L (98-107) L 08/01/22 06:12 Carbon Dioxide 24 mmol/L (22-29) 08/01/22 06:12 Anion Gap 17.1 (5-19) 08/01/22 06:12 BUN 12 mg/dL (8-23) 08/01/22 06:12 Creatinine 0.6 mg/dL (0.7-1.2) L 08/01/22 06:12 GFR Calculation Not Reportable 08/01/22 06:12 Glucose 143 mg/dL (65-115) H 08/01/22 06:12 Calculated Osmolality 278 mOsm/kg (285-295) L 08/01/22 06:12 Calcium 9.5 mg/dL (8.5-10.5) 08/01/22 06:12 Total Bilirubin 0.9 mg/dL (0.15-1.2) 08/01/22 06:12 AST 21 U/L (0-40) 08/01/22 06:12 ALT 22 U/L (0-41) 08/01/22 06:12 Alkaline Phosphatase 90 U/L (40-130) 08/01/22 06:12 Total Protein 7.3 g/dL (6.6-8.7) 08/01/22 06:12 Albumin 4.4 g/dL (3.5-5.2) 08/01/22 06:12 Globulin 2.9 g/dL (1.3-4.6) 08/01/22 06:12 Discharge Plan Discharge Patient Disposition: Admitted As Inpatient Admit Provider: Ines Mata Clinical Impression: Mass of upper lobe of left lung, Thoracic spine tumor, Neurogenic bladder, Prostate cancer, COPD (chronic obstructive pulmonary disease) Condition: Stable Coding Level of Care Code ED Drug And Alcohol Treatment Specialist for Marleni Herbert
[2022-08-01 06:23] LABS: Basophils # 0.1 10^3/uL (0.0-0.1); Basophils % 0.7 %; Eosinophils # 0.2 10^3/uL (0.0-0.8); Eosinophils % 2.2 %; Hematocrit 50.3 % (42.0-52.0); Hemoglobin 17.3 g/dL (11.7-16.6); Lymphocytes # 1.2 10^3/uL (0.8-4.8); Lymphocytes % 14.5 %; Mean Corpuscular HGB Conc 34.4 g/dL (30.0-36.0); Mean Corpuscular Hemoglobin 32.7 pg (28.0-34.0); Mean Corpuscular Volume 95.1 fl (80-94); Mean Platelet Volume 10.8 fL (7.4-10.4); Monocytes # 0.6 10^3/uL (0.2-0.9); Monocytes % 7.6 %; Neutrophils # 6.02 10^3/uL (1.8-7.7); Neutrophils % 74.6 %; Nucleated Red Blood Cells % 0 %; Platelet Count 151 10^3/cmm (130-400); Red Blood Count 5.29 10^6/uL (4.1-5.3); Red Cell Distribution Width 11.9 % (12.1-15.1); White Blood Count 8.1 10^3/uL (4.0-10.0)
[2022-08-01 06:39] LABS: Alanine Aminotransferase 22 U/L (0-41); Albumin Level 4.4 g/dL (3.5-5.2); Alkaline Phosphatase 90 U/L (40-130); Aspartate Amino Transferase 21 U/L (0-40); Blood Urea Nitrogen 12 mg/dL (8-23); Calcium 9.5 mg/dL (8.5-10.5); Carbon Dioxide 24 mmol/L (22-29); Chloride 96 mmol/L (98-107); Globulin 2.9 g/dL (1.3-4.6); Glucose 143 mg/dL (65-115); Osmolality Calculated 278 mOsm/kg (285-295); Sodium 133 mmol/L (136-145); Total Bilirubin 0.9 mg/dL (0.15-1.2); Total Protein 7.3 g/dL (6.6-8.7)
[2022-08-01 06:42] LABS: Anion Gap 17.1 (5-19); Creatinine Clr Calc Pharmacy 105.8609; Potassium 4.1 mmol/L (3.5-5.1)
--- NOTE | 2022-08-01 06:48 | XRR_ITS ---
PROCEDURE INFORMATION: Exam: XR Chest Exam date and time: 08/01/2022 6:57 AM Age: 72 years old Clinical indication: Cough and dyspnea; Patient HX: Numbness in both legs since yesterday. Having a hard time walking. PT states that they have found a tumor/mass on his spine and his symptoms keep getting worse; Additional info: Dyspnea/cough TECHNIQUE: Imaging protocol: Radiologic exam of the chest. Views: 1 view. COMPARISON: 1. CR (CHEST, ) 07/31/2022 4:[address] angio chest PE protcl [id number] 07/31/2022 5:48 AM FINDINGS: Lungs: There is stable focal opacity in the lateral left upper lung adjacent to the hilum. Pleural spaces: There is no pleural effusion or pneumothorax. Heart/Mediastinum: The left hilum is enlarged. Cardiomediastinal contours are unremarkable otherwise. Bones/joints: Bones are unremarkable. Soft tissues: There is prominent paravertebral soft tissue density in the upper chest consistent with the paraspinal mass visible on chest CT. XR/XR chest 1V portable [id number] IMPRESSION: Left hilar mass and focal opacity in the perihilar left lung consistent with neoplasm as visualized on chest CT.
[2022-08-01] MEDS: dexamethasone 10 mg/mL INJ IVP ×2 (06:56→21:45)
[2022-08-01 07:09] LABS: INR 1.01 (0.8-1.2); Partial Thromboplastin Time 27.5 SECONDS (23.9-36.7)
[2022-08-01 07:14] LABS: Add Urine Microscopic? YES; Bilirubin Urine Neg (Negative); Blood Urine 2+ (Negative); Glucose Urine UA Norm (Normal); Ketones Urine Negative (Negative); Leukocyte Esterase Urine Negative (Negative); Nitrate Urine Negative (Negative); Protein Urine Neg (Negative); Urine Appearance Clear (CLEAR); Urine Color Yellow (Yellow); Urobilinogen Urine Norm (Negative); pH Urine 5 (5-7)
[2022-08-01 07:15] LABS: Bacteria Urine TRACE /hpf; Squamous Epithelial Cell Urine 0-4 /hpf (0-5); WBC Urine 0-4 /hpf (0-5)
[2022-08-01 07:16] LABS: Add Urine Culture? No
[2022-08-01] MEDS: ipratropium-albuterol 3 mL Neb INHALATION (07:47)
--- NOTE | 2022-08-01 07:58 | MR_ITS ---
WS: [id number] MRI LUMBAR SPINE WITH AND WITHOUT CONTRAST. HISTORY: cord compression COMPARISON: None available. TECHNIQUE: Sagittal and axial multisequence imaging is submitted. Contrast MultiHance 20 mL IV. 4 nonrib-bearing lumbar vertebral bodies are identified. Metastatic bone involvement L1 involving the pedicle and facet. L2 metastasis spinous process. Additi onal metastatic bone involvement with enhancement involving the entire L3 vertebral body with mild ex tension into the RIGHT pedicle. Epidural tumor extends over length of 2.3 cm x 0.9 cm with mild encro achment upon the ventral thecal sac. T12 RIGHT posterior element metastatic involvement. There are 4 lumbar vertebral bodies. There is sacral metastatic involvement of the first 2 sacral seg ments. Otherwise mild disc space narrowing at the L3-4 and L4-5 levels. Conus terminates normally at T12-L1. L3: Soft tissue metastatic tumor posterior to the L3 vertebral body with mild encroachment upon the c entral canal and RIGHT subarticular recess. There is contact on the RIGHT nerve root. Tumor extends a long the RIGHT L3-4 foramen and nerve roots. Soft tissue tumor extends along the RIGHT lateral L3 oscar tebral body. L1-L2: Degenerative disc disease and facet arthritis. Moderate central, bilateral subarticular recess and foraminal stenosis is degenerative. L2-L3: Diffuse marked annular disc bulging and osteophytic ridging. Facet joint arthritis. Moderate c entral, bilateral subarticular recess and foraminal stenosis. L3-L4: Mild subarticular recess and foraminal stenosis. L4-S1 central disc protrusion and disc bulging. Moderate foraminal stenosis. MR/MR lumbar spine wo/w con [id number] IMPRESSION: 1. Osseous metastatic involvement as described above including T12, L1, L2, L3 and in the first 2 sacral segments. 2. Only 4 nonrib-bearing lumbar vertebral bodies are identified. 3. Extensive metastatic involvement of L3 with epidural tumor causing mild com pression of the thecal sac but no high-grade central stenosis. 4. Epidural tumor involvement at the L3-4 level with mild encroachment into th e RIGHT subarticular recess and along the RIGHT L3-4 nerve root.
--- NOTE | 2022-08-01 07:58 | ECG_ITS ---
[facility] Test Date: 2022-08-01 Pat Name: Giovanny Lockwood Department: Room: ED Gender: Male [employer]ysty[employer] B[employer] Molder: : 1950 Requested By: Johnny Hoover Order Number: [id number] Joseph MD: Contreras Van M.D. Measurements Intervals [place] Rate: 90 P: 80 OH: 177 QRS: -71 QRSD: 111 T: 66 QT: 338 QTc: 415 Interpretive Statements SINUS RHYTHM LEFT ANTERIOR FASCICULAR BLOCK [QRS AXIS <= -45, QR IN I, RS IN II] Compared to ECG 07/31/2022 06:49:28 Incomplete right bundle-branch block no longer present Electronically Signed On 08-01-2022 18:10:08 [employer] by Contreras Van M.D. [id number]
--- NOTE | 2022-08-01 08:15 | MR_ITS ---
WS: [id number] MRI CERVICAL SPINE with and without contrast. HISTORY: malignancy, possible cord compression COMPARISON: None available. Technique: Multiplanar, multisequence noncontrast imaging of the cervical spine. Gadolinium 20 mL IV. Mild straightening of the normal cervical lordosis. Slight increased T2 signal and decreased T1 signal in the LEFT lateral C3 vertebral body suspicious f or bony metastasis. Signal abnormality extends into the LEFT facet. Again noted is tumor encasement of the upper thoracic cord with obliteration of the normal thoracic c ord and extension along the ventral and dorsal epidural space. This was described on the MRI of [facility] spine. Multilevel facet arthritis and osteophytes. MR/MR cervical spine wo/w [id number] IMPRESSION: 1. No cervical cord compression. 2. Metastatic bone involvement of the LEFT lateral C3 vertebral body and facet . 3. Tumor encasement and involvement of the upper thoracic cord is reidentified . Described on the prior MRI of the thoracic spine.
[2022-08-01 08:27] LABS: Prostate Specific Antigen 0.833 ng/mL (0-4)
[2022-08-01] MEDS: gadobenate dimeglumine 20 mL vial IV (09:35)
--- NOTE | 2022-08-01 10:06 | PC.NURSE ---
PATIENT BACK IN ROOM AT 1006
--- NOTE | 2022-08-01 10:51 | PM.HP ---
Providers/Chief Complaint Admitting Physician: Taco Perez MD Primary Care Provider: JANEL Napier Chief Complaint: numbness in legs History of Present Illness Giovanny Lockwood is a 72 year old male with history of COPD, hypertension, and prostate cancer presenting with 2 days of bilateral lower extremity numbness and weakness. The patient reports gradual worsening of the sx since onset, along with some left chest and upper back discomfort with coughing. He was seen in the ER on 07/31 for the upper back discomfort and was subsequently found to have a large left suprahilar lung mass on chest x-ray. The patient also notes that within the last 2 days, he has lost the sensation of voiding and has urinated on himself. He has never had the symptoms before, and states that he has been following up with Dr. Callejas for his prostate cancer and has had normal biannual PSA screenings. The patient denies loss of bowel function, but notes he has not defecated in 2 days. He does note any recent weight changes or N/V. He denies fever, seizures, syncope, or any other symptoms at this time. He is on 2L O2 on physical examination but does not report any significant SOB. Review of Systems Narrative: General: Denies fever, malaise, weight changes, dehydration Skin: Denies color changes HENT: Denies headache, sore throat Eyes: Denies visual changes Chest: Reports pleuritic chest pain with coughing. Denies trauma Cardiovascular: Denies palpitations, syncope, peripheral edema Respiratory: Reports cough. Denies dyspnea, wheezing GI: Denies abdominal pain, distention, N/V/D Musculoskeletal: Reports upper back pain worse with coughing Neuro: Reports weakness and decreased sensations to bilateral lower extremities. Reports numbness and tingling to bilateral lower extremities. Reports incontinence of urine. Denies incontinence of bowel. Denies seizures. Medications/Allergies Home Medications Medication Instructions Recorded Confirmed Last Taken Type triamcinolone acetonide 0.1 % 1 applic topical DAILY PRN Rash 10/14/19 08/01/22 01/26/21 History topical cream albuterol sulfate 90 mcg/actuation 2 inh inhalation QID PRN Shortness 12/16/20 08/01/22 02/09/21 05:00 History aerosol inhaler (ProAir HFA) Of Breath fluticasone 250 mcg-salmeterol 50 1 inh inhalation BID 05/18/21 08/01/22 Unknown History mcg/dose blistr powdr for inhalation hydrocodone 5 mg-acetaminophen 325 1 tab PO Q8H PRN pain #12 tabs 07/31/22 08/01/22 07/31/22 Rx mg tablet 1/2 tab Absorbine Horse Liniment 1 applic topical PRN PRN Pain 08/01/22 08/01/22 Unknown History acetaminophen 500 mg tablet 1,000 mg PO Q6H PRN Pain 08/01/22 08/01/22 Unknown History cholecalciferol (vitamin D3) 25 25 mcg PO DAILY PRN unknown 08/01/22 08/01/22 Unknown History mcg (1,000 unit) capsule (Vitamin D3) fluticasone propionate 50 1 spray intranasal DAILY PRN 08/01/22 08/01/22 Unknown History mcg/actuation nasal Allergy Symptoms spray,suspension lisinopril 40 mg tablet 20 mg PO QAM 08/01/22 08/01/22 Unknown History Allergies Allergy/AdvReac Type Severity Reaction Status Date / Time tamsulosin Allergy Unknown Verified 08/01/22 07:26 PFSH Acute PFSH: Medical History (Updated 08/01/22 @ 11:39 by Taco Perez MD) BPH NOS w ur obs/LUTS H/O prostate cancer History of colon polyps Hypertension Lung mass Prostate cancer Treated with radiation therapy 2018 with short course of hormonal manipulation. PSA 10.8 diagnosis. Urgency incontinence Surgical History H/O colonoscopy H/O prostate biopsy S/P matrixectomy of toe Family History Mother , 86 Cancer Colon Father , 76 Dementia Social History Smoking and tobacco status: current some day smoker Alcohol intake: never Marital status: Current occupational status: retired History of recent travel: No Other PFSH information: Supplemental PFSH Information: H/O cyst resection in back Vitals/I&O/Wt Last Vital Signs Temp 98.8 F 08/01/22 06:05 Pulse 93 08/01/22 10:21 Resp 18 08/01/22 10:21 BP 120/79 08/01/22 10:21 Pulse Ox 93 08/01/22 10:21 O2 Del Method 08/01/22 10:21 O2 Flow Rate 3 08/01/22 10:21 07/31/22 08/01/22 08/01/22 22:59 06:59 14:59 Output Total 1400 / 1400 Balance -1400 / -1400 Weight last 48 hrs Weight 104.326 kg Physical Exam Narrative: Constitutional: Well-developed, well-nourished white male lying in ER bed appears in no acute distress. Skin: There is no cyanosis or mottling of the skin. No obvious lesions or rashes noted. HEENT: Head is atraumatic and normocephalic. Eyes are PERRLA, full EOMs, with no scleral icterus or injection. Ear nose and throat exam deferred. Chest: His chest is nontender to palpation and pain is not reproducible. Patient coughs during exam and states that he can feel the pain in his left chest. Cardiovascular: Regular rate and rhythm with no murmurs, rubs, or gallops. No JVD. Pulses equal bilaterally. Respiratory: Mild wheezing heard best in right lung wylie. No increased work of breathing or signs of respiratory distress. No Rales, rhonchi, or stridor. No intercostal retractions. GI: No abdominal tenderness, distention, rigidity, or guarding. Normal bowel sounds. : Lizarraga catheter is in place draining yellow-colored urine. Rest of the exam is deferred. Musculoskeletal: Patient is nontender to palpation of the cervical, thoracic, and lumbar spinous process. There is no paraspinal muscle tenderness or fasciculations. No peripheral edema or tenderness in any extremities. Neuro: Patient is alert and oriented. He exhibits equal sensations bilaterally, though mildly diminished in the lower extremities from the groin down to the digits. He has 1 out of 5 strength bilaterally with hip flexion. Good strength with dorsiflexion and plantarflexion. Good strength with flexion and extension of the knee. Equal bar gauger and lubricator tender strength bilaterally. Urinary Catheter Management: Straight: Cath Placed During This Visit: yes Urinary Catheter Date of Insertion: 08/01/22 Urinary Catheter Time of Insertion: 06:33 Data 08/01/22 06:12 08/01/22 06:12 Other data: PT and PTT are normal Calcium normal at 9.5 LFTs normal PSA which I obtained after ordering was 0.833, normal Urinalysis with 5-10 red blood cells 0-4 whites Cervical MRI no cord compression, metastatic lesion C3 Lumbar MRI demonstrates multiple areas of metastatic involvement with some mild compression at L3 Thoracic spine demonstrates metastatic involvement with tumor extension into T3/T4 with cord involvement Chest x-ray which I reviewed demonstrates a left perihilar mass, no obvious infiltrate Previous CTA demonstrated mass but no pulmonary embolism EKG which I reviewed demonstrates left axis deviation, sinus rhythm, no acute changes, intraventricular conduction delay. A&P Assessment and plan (1) Cord compression: Patient presents with symptoms of cord compression. This appears to be in the thoracic level at around T3/T4. He has multiple other areas of metastatic disease in the spine. I think this is likely secondary to lung malignancy. He will need referral to oncology. Tissue will be obtained by the surgeon today. Symptomatology includes incontinence, paresthesias, current inability to walk with muscular weakness. Without surgery in the near future, permanent impairment will be present. Discussed this with him. Coordinated care and discussed with the ER emergency department physician as well as orthopedic spine surgeon. Discussed with patient some of the risks of surgery, including infection, bleeding, need for further procedure, even . At this point in time, I think his care is as optimized as possible for surgery. He has received a dose of steroids in the emergency department. Will clarify with surgery if he will need further steroids for cord compression following surgery. I have just called him and will continue 10 mg IV every 6 hours for at least 24 hours. CBC for tomorrow to check for acute postoperative blood loss anemia (2) Urinary incontinence: Secondary to spinal cord compression. Had significant urinary retention Continue Lizarraga placed in the emergency department. (3) Hyponatremia: Mild, likely secondary to malignancy Repeat BMP tomorrow (4) Hypertension: Continue home medications Plan History of prostate cancer. PSA today is not elevated. I think his malignancy in his spine currently is likely metastatic lung cancer. COPD. DuoNeb every 6 hours, budesonide Tobacco dependency Hopefully tissue can be obtained during his spine surgery Full code Lovenox for DVT prophylaxis, to be considered following surgery after approved by surgeon. SCDs for now. Attestations Medical Necessity Statement*: Will need greater than 2 midnight stay for evaluation and treatment of spinal tumor with cord compression Coding Level of Care Code 35473 High MDM includes risk/complexity, reviewing test results, ordering lab/other test(s), independently interpretating test(s) (not separately recorded) and discussion of management or test(s) w/ other healthcare professional Diagnoses Cord compression G95.20 Urinary incontinence R32 Hyponatremia E87.1 Hypertension I10 Time Spent (min) 60
--- NOTE | 2022-08-01 11:48 | PM.CONSULT ---
Documented by User: Casey Garduno PA-C 08/01/22 12:05 Providers/Reason For Consult Consulting Physician/Specialty*: Orthopedic spine Reason for Consult*: Lower extremity weakness with loss of bowel or bladder control Attending Physician: Ines Mata MD Primary Care Provider: JANEL Napier History of Present Illness History of Present Illness Giovanny Lockwood is a 72 year old male who was examined in [place] [address] with family present complaining of lower extremity weakness and loss of bowel bladder control. States he has had back pain for a number of years this progressively intensified approximately 0300 07/31/2022 presented to the emergency room. States he had numbness and tingling in his feet at that time with progressive weakness that moved up to his groin and lower abdominal region and noticed that he began wetting himself approximately 199907/31/2022. Orthopedic spine was consulted following the MRI scans of his thoracic and lumbar spines with evidence of intradural tumor approximately T3 with evidence of vertebral body lighting up on the STIR image consistent with bony lesions. Patient has a history of lung cancer as well as prostate cancer. He denies any falls denies any injuries to his mid or low back. He does have a tobacco history for a number of years. Denies any neck or arm pain. An extensive review of the patient's past medical history, surgical history, allergies, medications, family history, social history, and review of systems was completed Review of Systems Narrative: General: Denies fever, malaise, weight changes, dehydration Skin: Denies color changes HENT: Denies headache, sore throat Eyes: Denies visual changes Chest: Reports pleuritic chest pain with coughing. Denies trauma Cardiovascular: Denies palpitations, syncope, peripheral edema Respiratory: Reports cough. Denies dyspnea, wheezing GI: Denies abdominal pain, distention, N/V/D Musculoskeletal: Reports upper back pain worse with coughing Neuro: Reports weakness and decreased sensations to bilateral lower extremities. Reports numbness and tingling to bilateral lower extremities. Reports incontinence of urine. Denies incontinence of bowel. Denies seizures. Medications/Allergies Home Medications Medication Instructions Recorded Confirmed Last Taken Type triamcinolone acetonide 0.1 % 1 applic topical DAILY PRN Rash 10/14/19 08/01/22 01/26/21 History topical cream albuterol sulfate 90 mcg/actuation 2 inh inhalation QID PRN Shortness 12/16/20 08/01/22 02/09/21 05:00 History aerosol inhaler (ProAir HFA) Of Breath fluticasone 250 mcg-salmeterol 50 1 inh inhalation BID 05/18/21 08/01/22 Unknown History mcg/dose blistr powdr for inhalation hydrocodone 5 mg-acetaminophen 325 1 tab PO Q8H PRN pain #12 tabs 07/31/22 08/01/22 07/31/22 Rx mg tablet 1/2 tab Absorbine Horse Liniment 1 applic topical PRN PRN Pain 08/01/22 08/01/22 Unknown History Intraoperative Neuromonitoring #1 ea 08/01/22 Unknown Rx acetaminophen 500 mg tablet 1,000 mg PO Q6H PRN Pain 08/01/22 08/01/22 Unknown History cholecalciferol (vitamin D3) 25 25 mcg PO DAILY PRN unknown 08/01/22 08/01/22 Unknown History mcg (1,000 unit) capsule (Vitamin D3) fluticasone propionate 50 1 spray intranasal DAILY PRN 08/01/22 08/01/22 Unknown History mcg/actuation nasal Allergy Symptoms spray,suspension lisinopril 40 mg tablet 20 mg PO QAM 08/01/22 08/01/22 Unknown History Allergies Allergy/AdvReac Type Severity Reaction Status Date / Time tamsulosin Allergy Unknown Verified 08/01/22 07:26 PFSH Acute PFSH: Medical History (Updated 08/01/22 @ 12:04 by Casey Garduno PA-C) BPH NOS w ur obs/LUTS H/O prostate cancer History of colon polyps Hypertension Lung mass Prostate cancer Treated with radiation therapy 2018 with short course of hormonal manipulation. PSA 10.8 diagnosis. Urgency incontinence Surgical History H/O colonoscopy H/O prostate biopsy S/P matrixectomy of toe Family History Mother , 86 Cancer Colon Father , 76 Dementia Social History Smoking and tobacco status: current some day smoker Alcohol intake: never Marital status: Current occupational status: retired History of recent travel: No Vitals/I&O/Wt Last Vital Signs Temp 98.8 F 08/01/22 06:05 Pulse 100 08/01/22 11:29 Resp 20 H 08/01/22 11:29 BP 120/79 08/01/22 11:35 Pulse Ox 93 08/01/22 11:29 O2 Del Method 08/01/22 11:29 O2 Flow Rate 2 08/01/22 11:29 07/31/22 08/01/22 08/01/22 22:59 06:59 14:59 Output Total 1400 / 1400 Balance -1400 / -1400 Weight last 48 hrs Weight 230 lb Physical Exam Narrative: He is alert and oriented x3 has good general appearance normal mood and affect. Pain with palpation back. He is able to wiggle both lower extremities but decreased sensation diffusely in both lower extremities up to approximately T7-T8 region. His feet and legs are warm to the touch pulses are weak but palpable calves are supple. Decree sensation diffusely down both lower extremities full range of motion of both upper extremities at the shoulders elbows wrists. Can flex and extend rotate his cervical spine without any problems. HENMT: COMMON NORMALS: normocephalic and atraumatic HEAD & SCALP: normocephalic and atraumatic Resp: COMMON NORMALS: normal respiratory effort Cardio: COMMON NORMALS: regular rate and regular rhythm RATE: regular rate RHYTHM: regular rhythm GI: COMMON NORMALS: Soft to palpation and non-tender PALPATION: Yes Soft to palpation : COMMON NORMALS: Yes no CVA tenderness BLADDER/KIDNEY EXAM: Yes no CVA tenderness Back/Pelvis: COMMON NORMALS: no CVA tenderness Psych: COMMON NORMALS: mental status grossly normal and cooperative Urinary Catheter Management: Straight: Cath Placed During This Visit: yes Urinary Catheter Date of Insertion: 08/01/22 Urinary Catheter Time of Insertion: 06:33 Data 08/01/22 06:12 08/01/22 06:12 MRI: Radiologist's impression: MR/MR cervical spine wo/w [id number] IMPRESSION: ? 1.? No cervical cord compression. 2.? Metastatic bone involvement of the LEFT lateral C3 vertebral body and facet. 3.? Tumor encasement and involvement of the upper thoracic cord is reidentified. Described on the prior MRI of the thoracic spine. ? MR/MR thoracic spine wo/w [id number] IMPRESSION: ? 1.? Significant metastatic bone and soft tissue involvement throughout the thoracic spine. 2.? Metastatic tumor encasement and compression upon the thoracic cord centered at T3. Metastatic involvement of the T2, T3 and T4 vertebral bodies. Most significant involvement at T3. 3.? Metastatic tumor extends into the foramina bilaterally predominantly at T3-4 with involvement of the nerve roots and contiguously to surround the thoracic cord. Additional paravertebral soft tissue involvement. 4.? T8 metastatic involvement with epidural extension of tumor with mild cord compression. 5.? L1 bony metastasis. 6.? Bulky lymphadenopathy in the AP window. MR/MR lumbar spine wo/w con [id number] IMPRESSION: ? 1.? Osseous metastatic involvement as described above including T12, L1, L2, L3 and in the first 2 sacral segments. 2.? Only 4 nonrib-bearing lumbar vertebral bodies are identified. 3.? Extensive metastatic involvement of L3 with epidural tumor causing mild compression of the thecal sac but no high-grade central stenosis. 4.? Epidural tumor involvement at the L3-4 level with mild encroachment into the RIGHT subarticular recess and along the RIGHT L3-4 nerve root. A&P Assessment and plan (1) Thoracic spine tumor: Based on the patient's presentation and MRI findings proceed with a T1-T11 instrumented fusion with biopsy of lesions. Discussed this at length with the family they understand all questions were addressed. (2) Lumbar spine tumor: (3) Cauda equina spinal cord injury: Coding Level of Care Code Acute Code for [facility] Fwd Diagnoses Thoracic spine tumor D49.2 Lumbar spine tumor D49.2 Cauda equina spinal cord injury S34.3XXA Documented by User: Reno Sparrow DO 08/01/22 17:49 Medications/Allergies Home Medications Medication Instructions Recorded Confirmed Last Taken Type triamcinolone acetonide 0.1 % 1 applic topical DAILY PRN Rash 10/14/19 08/01/22 01/26/21 History topical cream albuterol sulfate 90 mcg/actuation 2 inh inhalation QID PRN Shortness 12/16/20 08/01/22 02/09/21 05:00 History aerosol inhaler (ProAir HFA) Of Breath fluticasone 250 mcg-salmeterol 50 1 inh inhalation BID 05/18/21 08/01/22 Unknown History mcg/dose blistr powdr for inhalation hydrocodone 5 mg-acetaminophen 325 1 tab PO Q8H PRN pain #12 tabs 07/31/22 08/01/22 07/31/22 Rx mg tablet 1/2 tab Absorbine Horse Liniment 1 applic topical PRN PRN Pain 08/01/22 08/01/22 Unknown History Intraoperative Neuromonitoring #1 ea 08/01/22 Unknown Rx acetaminophen 500 mg tablet 1,000 mg PO Q6H PRN Pain 08/01/22 08/01/22 Unknown History cholecalciferol (vitamin D3) 25 25 mcg PO DAILY PRN unknown 08/01/22 08/01/22 Unknown History mcg (1,000 unit) capsule (Vitamin D3) fluticasone propionate 50 1 spray intranasal DAILY PRN 08/01/22 08/01/22 Unknown History mcg/actuation nasal Allergy Symptoms spray,suspension lisinopril 40 mg tablet 20 mg PO QAM 08/01/22 08/01/22 Unknown History Allergies Allergy/AdvReac Type Severity Reaction Status Date / Time tamsulosin Allergy Unknown Verified 08/01/22 07:26 PFSH Acute PFSH: Medical History (Updated 08/01/22 @ 12:04 by Casey Garduno PA-C) BPH NOS w ur obs/LUTS H/O prostate cancer History of colon polyps Hypertension Lung mass Prostate cancer Treated with radiation therapy 2018 with short course of hormonal manipulation. PSA 10.8 diagnosis. Urgency incontinence Surgical History H/O colonoscopy H/O prostate biopsy S/P matrixectomy of toe Family History Mother , 86 Cancer Colon Father , 76 Dementia Social History Smoking and tobacco status: current some day smoker Alcohol intake: never Marital status: Current occupational status: retired History of recent travel: No Physical Exam Urinary Catheter Management: Straight: Cath Placed During This Visit: yes Data 08/01/22 06:12 08/01/22 06:12 A&P Assessment and plan (1) Thoracic spine tumor: (2) Lumbar spine tumor: (3) Cauda equina spinal cord injury: Coding Level of Care Code Acute Code for [facility] Fwd Diagnoses Thoracic spine tumor D49.2 Lumbar spine tumor D49.2 Cauda equina spinal cord injury S34.3XXA
[2022-08-01] MEDS: sodium chloride 0.9% 1,000 ML 30 ML IV (12:10)
--- NOTE | 2022-08-01 12:30 | ANES.PREANE2 ---
Pre-Anesthetic Assessment Height/Weight: Height 1.85 m Weight 104.326 kg Temp Pulse Resp BP Pulse Ox O2 Del Method O2 Flow Rate 98.8 F 100 20 H 120/79 93 2 08/01/22 06:05 08/01/22 11:29 08/01/22 11:29 08/01/22 11:35 08/01/22 11:29 08/01/22 11:29 08/01/22 11:29 Preop Diagnosis: Cauda equina syndrome, thoracic intradural lesion, Operation Date: 08/01/22 12:00 Proposed Procedures p Spinal Fusion Posterior Spinal Fusion T1-T11(Not Applicable) - Reno Sparrow DO s Thoracic Decompression T3-T8(Not Applicable) - Reno Sparrow DO Familial anesthetic complications: none Was Beta Collins taken within 24 hours: N/A Was Clonidine taken within 24 hours: N/A Social Tobacco and No alcohol 0.3 ppd pack(s) per day Exam alert, oriented x 3, clear to auscultation bilaterally and regular rate & rhythm Airway Submandibular: within normal limits Cervical ROM: within normal limits Mallampati: Class I Dentition: loose and full History/ROS Other Pulmonary Chronic Obstructive Pulmonary Disease and Exertional Dyspnea CV/HEM Hypertension None reported Hepatic None reported GI None reported Metabolic Hyperlipidemia and Morbid Obesity Musc/skel Lower Back Pain and Weakness (BLE) Neuropsych None reported Anesthetic Plan ASA status: 3 Anesthesia: General Risk of > 500 ml blood loss (7ml/kg in children): No Medications/Allergies Home Medications Medication Instructions Recorded Confirmed Last Taken Type triamcinolone acetonide 0.1 % 1 applic topical DAILY PRN Rash 10/14/19 08/01/22 01/26/21 History topical cream albuterol sulfate 90 mcg/actuation 2 inh inhalation QID PRN Shortness 12/16/20 08/01/22 02/09/21 05:00 History aerosol inhaler (ProAir HFA) Of Breath fluticasone 250 mcg-salmeterol 50 1 inh inhalation BID 05/18/21 08/01/22 Unknown History mcg/dose blistr powdr for inhalation hydrocodone 5 mg-acetaminophen 325 1 tab PO Q8H PRN pain #12 tabs 07/31/22 08/01/22 07/31/22 Rx mg tablet 1/2 tab Absorbine Horse Liniment 1 applic topical PRN PRN Pain 08/01/22 08/01/22 Unknown History Intraoperative Neuromon #1 ea 08/01/22 Unknown Rx acetaminophen 500 mg tablet 1,000 mg PO Q6H PRN Pain 08/01/22 08/01/22 Unknown History cholecalciferol (vitamin D3) 25 25 mcg PO DAILY PRN unknown 08/01/22 08/01/22 Unknown History mcg (1,000 unit) capsule (Vitamin D3) fluticasone propionate 50 1 spray intranasal DAILY PRN 08/01/22 08/01/22 Unknown History mcg/actuation nasal Allergy Symptoms spray,suspension lisinopril 40 mg tablet 20 mg PO QAM 08/01/22 08/01/22 Unknown History Allergies Allergy/AdvReac Type Severity Reaction Status Date / Time tamsulosin Allergy Unknown Verified 08/01/22 07:26 Current Medications Generic Name Dose Route Start Last Admin Trade Name Freq PRN Reason Stop Dose Admin Sodium Chloride 1,000 mls @ 30 mls/hr 08/01/22 12:00 08/01/22 12:10 Sodium Chloride 0.9% IV 08/02/22 11:59 30 mls/hr .Q24H JAZZ Administration PFSH Anesthesia Medical History (Updated 08/01/22 @ 12:04 by Casey Garduno PA-C) BPH NOS w ur obs/LUTS H/O prostate cancer History of colon polyps Hypertension Lung mass Prostate cancer Treated with radiation therapy 2018 with short course of hormonal manipulation. PSA 10.8 diagnosis. Urgency incontinence Surgical History H/O colonoscopy H/O prostate biopsy S/P matrixectomy of toe Family History Mother , 86 Cancer Colon Father , 76 Dementia Social History Smoking and tobacco status: current some day smoker Alcohol intake: never Marital status: Current occupational status: retired History of recent travel: No Supplemental PFSH Information H/O cyst resection in back Data Anesthesia 08/01/22 06:12 08/01/22 06:12 Short CBC 08/01/22 Range/Units 06:12 WBC 8.1 (4.0-10.0) 10^3/uL Hgb 17.3 H (11.7-16.6) g/dL Hct 50.3 (42.0-52.0) % MCV 95.1 H (80-94) fl Plt Count 151 (130-400) 10^3/cmm Neut % (Auto) 74.6 % Neut # (Auto) 6.02 (1.8-7.7) 10^3/uL BMP 08/01/22 06:12 Sodium 133 L Potassium 4.1 Chloride 96 L Carbon Dioxide 24 BUN 12 Creatinine 0.6 L Glucose 143 H Calcium 9.5 Liver Function 08/01/22 Range/Units 06:12 Total Bilirubin 0.9 (0.15-1.2) mg/dL AST 21 (0-40) U/L ALT 22 (0-41) U/L Alkaline Phosphatase 90 (40-130) U/L Albumin 4.4 (3.5-5.2) g/dL Urine 08/01/22 Range/Units 06:30 Urine Color Yellow (Yellow) Urine Appearance Clear (CLEAR) Urine pH 5 (5-7) Ur Specific [place] 1.020 (1.005-1.030) Urine Protein Neg (Negative) Urine Glucose (UA) Norm (Normal) Urine Ketones Negative (Negative) Urine Nitrate Negative (Negative) Urine Bilirubin Neg (Negative) Ur Leukocyte Esterase Negative (Negative) Urine RBC 5-10 H (0-2) /hpf Urine WBC 0-4 H (0-5) /hpf Coags 08/01/22 06:12 PT 13.60 INR 1.01 APTT 27.5 Cardiac Studies: No Data to Display
[2022-08-01] MEDS: ceFAZolin 2,000 MG in sodium chloride 0.9% (plus) 50 ML 100 MG IV ×2 (12:41→21:39)
[2022-08-01] MEDS: vancomycin 1,000 MG SDV 1000 MG XX (13:46)
[2022-08-01 16:45] LABS: Basophils % 0.1 %; Hemoglobin 13.5 g/dL (11.7-16.6); Lymphocytes # 0.7 10^3/uL (0.8-4.8); Lymphocytes % 4.9 %; Mean Corpuscular HGB Conc 33.8 g/dL (30.0-36.0); Mean Corpuscular Hemoglobin 32.8 pg (28.0-34.0); Mean Corpuscular Volume 97.3 fl (80-94); Mean Platelet Volume 11.3 fL (7.4-10.4); Monocytes # 0.2 10^3/uL (0.2-0.9); Monocytes % 1.7 %; Neutrophils # 12.41 10^3/uL (1.8-7.7); Neutrophils % 92.2 %; Nucleated Red Blood Cells % 0 %; Platelet Count 171 10^3/cmm (130-400); Red Blood Count 4.11 10^6/uL (4.1-5.3); Red Cell Distribution Width 11.8 % (12.1-15.1); White Blood Count 13.5 10^3/uL (4.0-10.0)
--- NOTE | 2022-08-01 17:34 | XR_ITS ---
WS: [id number] C-ARM RADIOGRAPHS THORACIC; 6 IMAGES HISTORY: C-ARM PICS COMPARISON: None available. Intraoperative imaging during extensive posterior spinal fusion involving the thoracic spine. Extensi ve fusion hardware with vertical rods and pedicle screws. XR/XR lumbar spine min 4V [id number] IMPRESSION: Intraoperative imaging during fusion and decompression surgery.
--- NOTE | 2022-08-01 18:07 | P.OP_ITS ---
Operative Report Date of procedure: August 01, 2022 Pre-op diagnosis: Preop Diagnosis Cauda equina syndrome, epidural metastatic lesion Post-op diagnosis: same Procedure done: 1. T1 to T11 posterior spine fusion 2. T1 to T11 instrumentation 3. T2/3 laminectomy with partial facetectomy 4. T3/4 laminectomy with partial facetectomy 5. T4 laminectomy 6. T8/9 laminectomy with partial facetectomy 7. use of computer navigation /stereotactic 8. Biopsy T3 and T4 epidural space 9. Biopsy of T4 spinous process 10. Biopsy of T8 epidural space 11. use of allograft Surgeon: Reno Sparrow Floatlight Loading Supervisor: Casey Garduno Floatlight Loading Supervisor: The certified ophthalmic surgical assistant, Casey Garduno, PAC was needed for his expertise under the microscope. He was important and necessary throughout the procedure to complete in a safe and timely manner. He assisted with patient positioning prepping and draping tissue retraction suctioning of the operative field protection of the dural sac and tissue closure Estimated blood loss (mL): 1,400 Procedure: 1. T1 to T11 posterior spine fusion 2. T1 to T11 instrumentation 3. T2/3 laminectomy with partial facetectomy 4. T3/4 laminectomy with partial facetectomy 5. T4 laminectomy 6. T8/9 laminectomy with partial facetectomy 7. use of computer navigation /stereotactic 8. Biopsy T3 and T4 epidural space 9. Biopsy of T4 spinous process 10. Biopsy of T8 epidural space 11. use of allograft Patient was brought to the operative suite after undergoing anesthesia and pl aced in the prone position. All areas impingement well-padded. Patient was prepped and draped in normal sterile fashion. Skin incision was made from T1 down to T11. Subsequently patient has only 4 lumbar vertebrae. Subperiosteal dissection was made after identifying the thoracic thoracic fascia. Subperiosteal dissection was made from T1 down to T11 out to the transverse processes bilaterally. Next a spinous process clamp was placed onto T12. This was then attached the computer navigation fiducial. C-arm was brought in and spun around the patient. Imaging for computer navigation was done from T7 down to T11. Patient's arms were on the way for the rating topless been so the computer navigation aspect of the case was from T7 down to T11. It was brought to placing the pedicle screws. The pedicle screws from T7-T11 were done using computer navigation. The high-speed bur was used to open the pedicle wall and then the gearshift probe going to continue navigation was passed down the pedicle pedicle. It was then passed and then a screw was placed at each position these were all 6 5 pedicle screws. Next attention was brought to placing the screws without computer navigation. This was done using the high-speed bur gearshift pedicle feeler and placement of the screw. This was done T4 down to T6. T3 was skipped because of the amount of tumor that was eating the bone was concerned that the wall would breach. Nexium was brought in order to facilitate placing the T2 and T1 pedicle screws. This was done by identifying the pedicles with the C-arm and then using a high-speed bur pedicle gearshift and then the pedicle feeler and then placement of screw. These were 5 5 screws. Once all the screws were placed attention was then brought to performing the laminectomies. Attention was first brought to the T3 level. This was done by taking out part of the T2 lamina and facet oft2/ T3. Once the T2 laminectomy and T2-3 partial facetectomy were completed attention was then brought to the T 3/ 4 laminectomy the T3 lamina was completely removed along with the T3-4 facet medially. The top part of the lamina of T4 was taken down using a high-speed bur as well and the cup. Seen Kerrison rongeur's. Once this was completed the ligamentum flavum was gently taken down from T4 all the way up to the bottom of T2 where the remaining lamina was. The tumor was then identified. The tumor was all sent for biopsy. This is a T3-4 biopsy that was completed of the epidural space. And also in a bit of the spinous process of T4 this was also sent for separate biopsy. The tumor was incompletely debulked spinal cord was being significant compressed however after removing the tumor the spinal cord appeared to be in good repair the dura was pulsatile and did not appear to have any infarcts. Next attention was brought to the T8 level. The laminectomy was performed at T8. Using rongeurs and high-speed bur and then postatherectomy of T8-9 was taken down bilaterally using the high-speed bur and Kerrison rongeurs. Ligamentum flavum was then taken off. In the epidural tumor was sent for biopsy. The tumor was then debulked. Once the tumor was felt to be adequately decompressed the spinal cord again was in good repair and there had good pulse to it. Next attention was brought to placing the rods. Rods were measured and cut and locked in the place from T1-T11. All the end caps were placed on top torqued in position. This was done bilaterally. Next attention was brought to decorticating the bone. Was done using a high- speed bur. And then a osteoamp allograft was packed along the lamina and spinous processes where the laminectomies were performed. Once this was completed then attention was brought to close the wound. This was done after vancomycin powder was placed and then deep drain was placed wound was closed in layered fashion with 0 Vicryl 2-0 Vicryl Monocryl suture and sterile dressings. Patient was transferred the PACU in stable condition.
--- NOTE | 2022-08-01 18:25 | PC.NURSE ---
Arrived to pacu sedated. Oral airway in place. NO ACTIVE BLEEDING NOTED AT THIS TIME
--- NOTE | 2022-08-01 18:37 | PC.NURSE ---
Remains sedated. VS stable. No bleeding noted from back incision
--- NOTE | 2022-08-01 18:38 | SUR.OPER ---
08/01/22 1702 all implants implanted in patient before change of care with staff, Telma Kim RN
--- NOTE | 2022-08-01 18:47 | PC.NURSE ---
family updated. Will wait in patient's room to see him.
--- NOTE | 2022-08-01 18:57 | PC.NURSE ---
Remains sedated but responds to verbal and tactile stimulation
--- NOTE | 2022-08-01 19:09 | PC.NURSE ---
Arouses to verbal stemuli. Remains sleepy
--- NOTE | 2022-08-01 19:17 | ANE.PACU2 ---
Inpatient post-anesthesia follow up: Airway intact: Yes Vital signs: Temperature 97 F Pulse Rate 94 Respiratory Rate 16 Blood Pressure 89/54 Pulse Oximetry 92 Oxygen Delivery Me thod Simple Mask Oxygen Flow Rate 8 Fraction of Inspir ed Oxygen Hydration adequate: Yes Nausea and vomiting: No Pain level: 1 Mental status: Baseline
--- NOTE | 2022-08-01 19:22 | PC.NURSE ---
Arouses to verbal stemuli and spontaneous.
--- NOTE | 2022-08-01 19:35 | PC.NURSE ---
Oral airway removed @ 0722 with patient assist
--- NOTE | 2022-08-01 19:41 | PC.NURSE ---
Hemovac emptied with 100cc
--- NOTE | 2022-08-01 20:12 | PC.NURSE ---
Art line left wrist removed, Manual pressure for 15 minutes. Hemostasis achieved.
--- NOTE | 2022-08-01 20:26 | PC.NURSE ---
Awakes easily. Verbally responds
--- NOTE | 2022-08-01 20:35 | P.PCN_ITS ---
PACU note Narrative: VSS, Good respiratory effort, report to WILLOW ANALYST Exam: awake
--- NOTE | 2022-08-01 20:35 | PM.PACU ---
PACU note Narrative: VSS, Good respiratory effort, report to PLUG ASSEMBLER Exam: awake
[2022-08-01] MEDS: D5-NS 0.45% + KCL 20 mEq 20 MEQ/1,000 ML BAG 100 MEQ IV (21:40)
[2022-08-01] MEDS: ketorolac 30 mg/mL INJ IVP (22:25)
[2022-08-02] VITALS (14 sets, daily range): BP systolic 80–122; BP diastolic 50–66; PULSE 84–120; RESP 16–20; TEMP 36.3–37.1; O2SAT 90–96
[2022-08-02] MEDS: ceFAZolin 2,000 MG in sodium chloride 0.9% (plus) 50 ML 100 MG IV ×2 (03:44→11:22)
[2022-08-02] MEDS: dexamethasone 10 mg/mL INJ IVP ×2 (03:44→08:06)
[2022-08-02] MEDS: morphine 4 mg/mL SDV 1 mL 2 MG IVP (03:47)
[2022-08-02] MEDS: ipratropium-albuterol 3 mL Neb INHALATION ×4 (05:23→20:15)
[2022-08-02 05:43] LABS: Basophils % 0.2 %; Hematocrit 34.2 % (42.0-52.0); Hemoglobin 11.3 g/dL (11.7-16.6); Lymphocytes # 0.7 10^3/uL (0.8-4.8); Lymphocytes % 5.7 %; Mean Corpuscular Hemoglobin 32.7 pg (28.0-34.0); Mean Corpuscular Volume 98.8 fl (80-94); Mean Platelet Volume 11.4 fL (7.4-10.4); Monocytes # 0.4 10^3/uL (0.2-0.9); Monocytes % 2.9 %; Neutrophils # 11.53 10^3/uL (1.8-7.7); Neutrophils % 90.7 %; Nucleated Red Blood Cells % 0 %; Platelet Count 136 10^3/cmm (130-400); Red Blood Count 3.46 10^6/uL (4.1-5.3); Red Cell Distribution Width 11.9 % (12.1-15.1); White Blood Count 12.7 10^3/uL (4.0-10.0)
[2022-08-02 06:07] LABS: Alanine Aminotransferase 17 U/L (0-41); Albumin Level 3.1 g/dL (3.5-5.2); Alkaline Phosphatase 58 U/L (40-130); Anion Gap 11.9 (5-19); Aspartate Amino Transferase 25 U/L (0-40); Blood Urea Nitrogen 18 mg/dL (8-23); Calcium 8.7 mg/dL (8.5-10.5); Carbon Dioxide 25 mmol/L (22-29); Chloride 104 mmol/L (98-107); Creatinine Clr Calc Pharmacy 105.8609; Globulin 1.8 g/dL (1.3-4.6); Glucose 141 mg/dL (65-115); Magnesium 1.8 mg/dL (1.7-2.3); Osmolality Calculated 286 mOsm/kg (285-295); Potassium 4.9 mmol/L (3.5-5.1); Sodium 136 mmol/L (136-145); Total Bilirubin 0.6 mg/dL (0.15-1.2); Total Protein 4.9 g/dL (6.6-8.7)
[2022-08-02] MEDS: lisinopril 20 mg Tablet PO (06:25)
--- NOTE | 2022-08-02 06:44 | PM.PN ---
Subjective Subjective: POD 1 Patient reports better movement of legs. Reports increased sensation all the way through the legs and abdominal region. Denies any chest pain, shortness of breath, headaches. Family is present. Vitals/I&O/Wt Last Vital Signs Temp 98.7 F 08/02/22 03:47 Pulse 97 08/02/22 05:25 Resp 18 08/02/22 05:25 BP 122/64 08/02/22 06:26 Pulse Ox 90 08/02/22 05:25 O2 Del Method 08/02/22 05:25 O2 Flow Rate 5 08/02/22 05:25 08/01/22 08/01/22 08/02/22 14:59 22:59 06:59 Intake Total 160 / 160 4350 / 4510 50 / 4560 Output Total 1400 / 1400 2410 / 3810 125 / 3935 Balance -1240 / -1240 1940 / 700 -75 / 625 Weight last 48 hrs Weight 230 lb Physical Exam Narrative: Patient presents alert and oriented x3 with a good general appearance normal mood and affect. Normal coordination normal stability. Mild tenderness around the incisional site with the incision appear to be clean and dry with Hemovac intact. No signs of erythema or drainage. No signs of infection. Patient denies any fevers or chills. 4/5 motor strength both lower extremities with negative straight leg raise bilaterally. Calves are supple no medial thigh tenderness. Pulses are 2+ at the dorsalis pedis and posterior tibial region. Good capillary refill throughout normal sensation light touch both lower extremities. Urinary Catheter Management: Straight: Cath Placed During This Visit: yes Reason for Continuing Indwelling Catheter: Perioperative Use in Selected Surgeries Urinary Catheter Date of Insertion: 08/01/22 Urinary Catheter Time of Insertion: 06:33 Data 08/02/22 05:11 08/02/22 05:11 A&P Assessment and plan (1) Cauda equina spinal cord injury: Physical therapy to evaluate and treat. We will also need a [place] J with SOMI extension brace. Brace does not need to be worn in bed or sitting up in bed but when the patient begins to mobilize will need the brace on. We will hold Hemovac drain until tomorrow. May begin anticoagulation tomorrow. Encourage incentive spirometry for pulmonary toilet. (2) Fusion of spine, thoracolumbar region: Attestations Medical Necessity Statement*: Defer to medical team. Coding Level of Care Code Acute Code for Chg Fwd Diagnoses Cauda equina spinal cord injury S34.3XXA Fusion of spine, thoracolumbar region M43.25
[2022-08-02] MEDS: ketorolac 30 mg/mL INJ IVP ×2 (07:42→17:28)
[2022-08-02] MEDS: D5-NS 0.45% + KCL 20 mEq 20 MEQ/1,000 ML BAG 100 MEQ IV ×2 (08:05→17:29)
[2022-08-02] MEDS: docusate sodium 100 mg Capsule PO ×2 (08:06→17:28)
[2022-08-02] MEDS: budesonide 0.5 mg/2 mL Neb INHALATION ×2 (08:19→20:14)
--- NOTE | 2022-08-02 09:18 | PM.PN ---
Subjective Subjective: Patient is 1 day post-op spinal fusion of the thoracolumbar spine following mass resection and spinal cord decompression. Patient states he has overall tolerated the post-procedure well and has had no complications. Upon recheck, he states he has increased strength in both lower extremities as well as increased sensations bilaterally. Other than increasing pain, he states that he feels okay. Per nurse, he received tramadol earlier this morning and the patient says this helped his pain slightly. He does not report any chest pain, shortness of breath, abdominal pain, or any other symptoms. Physical therapy has reportedly consulted the patient and will do so again in a couple hours. Adequate tissue samples were reportedly obtained and sent to pathology for biopsy. Medications: Reviewed: Yes Vitals/I&O/Wt Last Vital Signs Temp 97.3 F L 08/02/22 08:00 Pulse 99 08/02/22 08:00 Resp 18 08/02/22 08:00 BP 87/50 08/02/22 08:00 Pulse Ox 91 08/02/22 08:00 O2 Del Method 08/02/22 08:00 O2 Flow Rate 5 08/02/22 08:00 08/01/22 08/02/22 08/02/22 22:59 06:59 14:59 Intake Total 4350 / 4510 50 / 4560 1567.5 / 1567.5 Output Total 2410 / 3810 575 / 4385 Balance 1940 / 700 -525 / 175 1567.5 / 1567.5 Weight last 48 hrs Weight 104.326 kg Physical Exam Narrative: General exam no distress, conversive and alert Skin: No skin color changes. Incision scar not visualized. Cardiovascular: Regular rate and rhythm with no murmurs, rubs, or gallops. No JVD. Respiratory: Mild wheezing bilaterally. No increased work of breathing or signs of respiratory distress. No Rales, rhonchi, or stridor. GI: No abdominal tenderness, distention, rigidity, or guarding. : Lizarraga catheter is in place. Rest of the exam is deferred. Musculoskeletal: DP/PT pulses intact bilaterally. SCDs present bilaterally. No peripheral edema. Neuro: Patient is alert and oriented. Increase sensations to bilateral lower extremities improved from yesterday. Increased strength bilaterally with hip flexion improved from yesterday. Good strength with dorsiflexion and plantarflexion. Good strength with flexion and extension of the knee. Urinary Catheter Management: Straight: Cath Placed During This Visit: yes Reason for Continuing Indwelling Catheter: Perioperative Use in Selected Surgeries Urinary Catheter Date of Insertion: 08/01/22 Urinary Catheter Time of Insertion: 06:33 Data 08/02/22 05:11 08/02/22 05:11 A&P Assessment and plan (1) Cord compression: Postoperative day #1 status post decompression, multiple level fusion, instrumentation, laminectomy Tissue was obtained by surgery, regarding mass. Await pathology Steroids were initiated secondary to cord compression. Discussed with surgeon. Will continue that today, and consider tapering tomorrow. (2) Urinary incontinence: Secondary to spinal cord compression. Had significant urinary retention Continue Lizarraga placed in the emergency department. No changes at this time. (3) Hyponatremia: Mild, likely secondary to malignancy Improved today. Repeat BMP tomorrow (4) Hypertension: Blood pressure soft this morning. Discontinue lisinopril. Plan History of prostate cancer. PSA today is not elevated. I think his malignancy in his spine currently is likely metastatic lung cancer. Acute postoperative blood loss anemia. Hemoglobin decrease rather minimal at this time. Repeat CBC tomorrow. COPD. DuoNeb every 6 hours, budesonide Tobacco dependency Hopefully tissue can be obtained during his spine surgery Full code Lovenox for DVT prophylaxis, to be considered following surgery after approved by surgeon. Discussed with surgery and can initiate Lovenox 08/03. SCDs for now. Will likely require rehabilitation placement. Attestations Medical Necessity Statement*: Needs continued hospitalization for close monitoring following extensive spinal surgery for cord impingement from tumor Coding Level of Care Code Acute Code for Chg Fwd Diagnoses Cord compression G95.20 Urinary incontinence R32 Hyponatremia E87.1 Hypertension I10
--- NOTE | 2022-08-02 09:48 | PC.CHAP ---
Pastoral Care Encounter/Spiritual Assessment Type of Contact [] Declined bus mechanic visit [] Patient/Family/Request visit [] Outpatient visit [] Follow-up visit [] Physician referral [] Code/Alert [x] Routine visit [] Staff referral [] Actively dying [] Patient sleeping [] Family support [] [] Out of room [] Palliative care [] [] Receiving care in room [] Pre-surgical visit [] Trauma [] Long length of stay [] ICU visit [] Other: Relational/Emotional Strength [x] Patient feels connected with others/family/visitors/staff [] Distress [] Loneliness/isolation [] Abandonment Spirituality of Patient [x] Person of Renee [] Attends Congregational of their Renee [] Believes in Prayer [] Reads Bible or Latter-Day materials [] There are Spiritual issues to be addressed Reproduction Machine Loader Interventions [] Prayer [x] Active listening [x] Non-anxious presence [x] Spiritual/emotional support [] Crisis/trauma care [] Spiritual counseling [] Bereavement support [] Provided bereavement packet [] Provided Bible/devotional materials [] Provided toy/stuffed animal, coloring book to patient or family member [] Provided Communion [] Anointing/[place] [] Salvation [x] Completed spiritual assessment [] Other: Impact on Illness or Injury [] Angry [] Fearful [] Anxious [] Often cries [] Exhaustion [] Unable to work [] Unable to attend jainism [] Unable to walk/stand [] Unable to read [] Unable to drive [] Unable to eat/drink [] Unable to sleep [] Unable to be with family [] Patient intubated [] Other: Summary was in room during bus mechanic visit. Pt had major surgery yesterday and it was apparent he was not feeling well. Time spent with patient 5m
[2022-08-02] MEDS: sodium chloride 0.9% 500 ML IV (11:22)
[2022-08-02 15:08] LABS: Hematocrit 33.2 % (42.0-52.0); Hemoglobin 10.9 g/dL (11.7-16.6)
[2022-08-02] MEDS: HYDROcodone-acetaminophen 5-325 mg Tablet PO (15:12)
[2022-08-02] MEDS: dexamethasone 10 mg/mL INJ 4 MG IVP ×2 (15:12→21:18)
[2022-08-03] VITALS (16 sets, daily range): BP systolic 101–124; BP diastolic 57–68; PULSE 88–103; RESP 16–18; TEMP 36.7–36.9; O2SAT 1–93
[2022-08-03] MEDS: morphine 4 mg/mL SDV 1 mL 2 MG IVP (02:47)
[2022-08-03] MEDS: ketorolac 30 mg/mL INJ IVP (02:47)
[2022-08-03] MEDS: dexamethasone 10 mg/mL INJ 4 MG IVP ×3 (02:49→20:14)
[2022-08-03] MEDS: ipratropium-albuterol 3 mL Neb INHALATION ×4 (03:01→20:30)
[2022-08-03] MEDS: D5-NS 0.45% + KCL 20 mEq 20 MEQ/1,000 ML BAG 100 MEQ IV (03:11)
[2022-08-03 05:52] LABS: Basophils % 0.1 %; Hematocrit 30.5 % (42.0-52.0); Hemoglobin 10.2 g/dL (11.7-16.6); Lymphocytes # 0.7 10^3/uL (0.8-4.8); Lymphocytes % 5.6 %; Mean Corpuscular HGB Conc 33.4 g/dL (30.0-36.0); Mean Corpuscular Hemoglobin 32.7 pg (28.0-34.0); Mean Corpuscular Volume 97.8 fl (80-94); Mean Platelet Volume 11.1 fL (7.4-10.4); Monocytes # 0.6 10^3/uL (0.2-0.9); Monocytes % 4.8 %; Neutrophils % 88.9 %; Nucleated Red Blood Cells % 0 %; Platelet Count 131 10^3/cmm (130-400); Red Blood Count 3.12 10^6/uL (4.1-5.3); White Blood Count 12.8 10^3/uL (4.0-10.0)
[2022-08-03 06:11] LABS: Anion Gap 11.8 (5-19); Blood Urea Nitrogen 24 mg/dL (8-23); Calcium 8.2 mg/dL (8.5-10.5); Carbon Dioxide 25 mmol/L (22-29); Chloride 102 mmol/L (98-107); Glucose 129 mg/dL (65-115); Osmolality Calculated 284 mOsm/kg (285-295); Potassium 4.8 mmol/L (3.5-5.1); Sodium 134 mmol/L (136-145)
[2022-08-03 06:12] LABS: Creatinine Clr Calc Pharmacy 105.8609
--- NOTE | 2022-08-03 07:41 | PM.PN ---
Subjective Subjective: POD 2 Patient in good spirits reports continued improvement of sensation in his legs with better movement of his legs. Family is present. Vitals/I&O/Wt Last Vital Signs Temp 98.4 F 08/03/22 04:00 Pulse 92 08/03/22 06:24 Resp 16 08/03/22 04:00 BP 113/68 08/03/22 04:00 Pulse Ox 90 08/03/22 04:00 O2 Del Method 08/03/22 04:00 O2 Flow Rate 5 08/03/22 04:00 08/02/22 08/03/22 08/03/22 22:59 06:59 14:59 Intake Total 1180 / 3777.5 970 / 4747.5 Output Total 2029 / 2119 775 / 2895 Balance -850 / 1657.5 195 / 1852.5 Physical Exam Narrative: Patient presents alert and oriented x3 with a good general appearance normal mood and affect.? Normal coordination normal stability.? Mild tenderness around the incisional site with the incision appear to be clean and dry with Hemovac intact.? No signs of erythema or drainage.? No signs of infection.? Patient denies any fevers or chills.? 4/5 motor strength both lower extremities with negative straight leg raise bilaterally.? Calves are supple no medial thigh tenderness.? Pulses are 1+ at the dorsalis pedis and posterior tibial region.? Good capillary refill throughout normal sensation light touch both lower extremities. Urinary Catheter Management: Straight: Cath Placed During This Visit: yes Reason for Continuing Indwelling Catheter: Acute Urinary Retention or Obstruction Urinary Catheter Date of Insertion: 08/01/22 Urinary Catheter Time of Insertion: 06:33 Data 08/03/22 05:34 08/03/22 05:34 A&P Assessment and plan (1) Fusion of spine, thoracolumbar region: Physical therapy will continue to evaluate and treat. Discontinue Hemovac drain with dressing change application of Silverlon dressing. Continue [place] J was SOMI extension when up out of bed. Awaiting pathology report. environmental services coordinator consulted for placement and will need rehab facility. (2) Cauda equina spinal cord injury: (3) Lumbar spine tumor: Attestations Medical Necessity Statement*: Defer to medical team Coding Level of Care Code Acute Code for Chg Fwd Diagnoses Fusion of spine, thoracolumbar region M43.25 Cauda equina spinal cord injury S34.3XXA Lumbar spine tumor D49.2
[2022-08-03] MEDS: docusate sodium 100 mg Capsule PO ×2 (09:31→18:08)
[2022-08-03] MEDS: budesonide 0.5 mg/2 mL Neb INHALATION ×2 (09:44→20:30)
--- NOTE | 2022-08-03 09:44 | PM.PN ---
Subjective Subjective: Giovanny reports he is doing okay today. He still has some pain. He is hoping to get up and move around more. Rehab this been discussed with him and his . Medications: Reviewed: Yes Vitals/I&O/Wt Last Vital Signs Temp 98.3 F 08/03/22 08:00 Pulse 88 08/03/22 08:00 Resp 16 08/03/22 08:00 BP 108/68 08/03/22 08:00 Pulse Ox 93 08/03/22 08:00 O2 Del Method 08/03/22 04:00 O2 Flow Rate 5 08/03/22 04:00 08/02/22 08/03/22 08/03/22 22:59 06:59 14:59 Intake Total 1180 / 3777.5 970 / 4747.5 Output Total 2029 / 2119 775 / 2895 700 / 700 Balance -850 / 1657.5 195 / 1852.5 -700 / -700 Physical Exam Narrative: General exam no distress Cardiovascular: Regular rate and rhythm Respiratory: Diminished breath sounds but no wheezing or crackles. Currently on 5 L of oxygen. Abdomen soft nontender positive bowel sounds demonstrates Lizarraga, urine clear Extremities no cyanosis clubbing or edema Neuro. Strength appears to be improving lower extremities with him able to raise his legs off the bed. Right leg is slightly weaker than left Urinary Catheter Management: Straight: Cath Placed During This Visit: yes Reason for Continuing Indwelling Catheter: Acute Urinary Retention or Obstruction Urinary Catheter Date of Insertion: 08/01/22 Urinary Catheter Time of Insertion: 06:33 Data 08/03/22 05:34 08/03/22 05:34 A&P Assessment and plan (1) Cord compression: Postoperative day #2 status post decompression, multiple level fusion, instrumentation, laminectomy Tissue was obtained by surgery, regarding mass. Await pathology Change steroids to every 12 hours Will go ahead and initiate Lovenox, 30 mg subcutaneous daily today Overall is making improvement but will need rehabilitation. Discharge planning arranging Blood pressures were somewhat soft yesterday. Hopefully can work more with therapy today. (2) Urinary incontinence: Secondary to spinal cord compression. Had significant urinary retention Continue Lizarraga placed in the emergency department. No changes at this time. (3) Hyponatremia: Mild, likely secondary to malignancy Overall stable Repeat BMP tomorrow (4) Hypertension: Blood pressure soft. Lisinopril discontinued Fluid can be discontinued today Plan History of prostate cancer. PSA today is not elevated. I think his malignancy in his spine currently is likely metastatic lung cancer. Acute postoperative blood loss anemia. Hemoglobin decreased to 10.2 but appears stable. No need for transfusion. COPD. DuoNeb every 6 hours, budesonide. Wean oxygen. Incentive spirometry. Tobacco dependency Full code Lovenox for DVT prophylaxis, to be started today with SCDs Will need rehabilitation placement. Attestations Medical Necessity Statement*: Needs continued hospitalization for close monitoring following surgery for cord compression. Coding Level of Care Code Acute Code for Chg Fwd Diagnoses Cord compression G95.20 Urinary incontinence R32 Hyponatremia E87.1 Hypertension I10
[2022-08-03] MEDS: HYDROcodone-acetaminophen 5-325 mg Tablet PO (10:02)
[2022-08-04] VITALS (11 sets, daily range): BP systolic 97–146; BP diastolic 62–74; PULSE 75–89; RESP 18–20; TEMP 36.4–37.2; O2SAT 89–93
[2022-08-04 05:01] LABS: Basophils % 0.1 %; Hematocrit 30.8 % (42.0-52.0); Hemoglobin 10.4 g/dL (11.7-16.6); Lymphocytes # 0.9 10^3/uL (0.8-4.8); Lymphocytes % 7.9 %; Mean Corpuscular HGB Conc 33.8 g/dL (30.0-36.0); Mean Corpuscular Hemoglobin 32.5 pg (28.0-34.0); Mean Corpuscular Volume 96.3 fl (80-94); Mean Platelet Volume 10.8 fL (7.4-10.4); Monocytes # 0.8 10^3/uL (0.2-0.9); Monocytes % 6.7 %; Neutrophils % 84.5 %; Nucleated Red Blood Cells % 0 %; Platelet Count 136 10^3/cmm (130-400); Red Cell Distribution Width 11.9 % (12.1-15.1); White Blood Count 11.8 10^3/uL (4.0-10.0)
[2022-08-04 05:23] LABS: Anion Gap 12.5 (5-19); Blood Urea Nitrogen 24 mg/dL (8-23); Calcium 8.2 mg/dL (8.5-10.5); Carbon Dioxide 27 mmol/L (22-29); Chloride 101 mmol/L (98-107); Glucose 113 mg/dL (65-115); Osmolality Calculated 287 mOsm/kg (285-295); Potassium 4.5 mmol/L (3.5-5.1); Sodium 136 mmol/L (136-145)
[2022-08-04 05:28] LABS: Creatinine Clr Calc Pharmacy 105.8609
--- NOTE | 2022-08-04 06:40 | P.PN_ITS ---
Subjective Subjective: POD 3 Patient was working with physical therapy yesterday and stood up with a walker and assistance. He states that his legs are feeling better. He has family present this morning and having questions regarding oncology treatments. They are requesting Dr. Portillo as he provided care to the patient's mother. Patient states he has not had a bowel movement for for 5 days. Vitals/I&O/Wt Last Vital Signs Temp 98.2 F 08/04/22 04:00 Pulse 89 08/04/22 04:00 Resp 18 08/04/22 04:00 BP 105/64 08/04/22 04:00 Pulse Ox 93 08/04/22 04:00 O2 Del Method 08/04/22 04:00 O2 Flow Rate 4 08/03/22 20:41 08/03/22 08/03/22 08/04/22 14:59 22:59 06:59 Intake Total 360 / 360 Output Total 1000 / 1000 500 / 1500 1800 / 3300 Balance -640 / -640 -500 / -1140 -1800 / -2940 Physical Exam Narrative: Patient presents alert and oriented x3 with a good general appea natalie normal mood and affect.? Normal coordination normal stability.? Mild tenderness around the incisional site with the incision appear to be clean and dry.? No signs of erythema or drainage.? No signs of infection.? Patient denies any fevers or chills.? 4/5 motor strength both lower extremities with negative straight leg raise bilaterally.? Calves are supple no medial thigh tenderness.? Pulses are 1+ at the dorsalis pedis and posterior tibial region.? Good capillary refill throughout improving sensation light touch both lower extremities. Dull sensation through the abdominal region Urinary Catheter Management: Straight: Cath Placed During This Visit: yes Reason for Continuing Indwelling Catheter: Other Urinary Catheter Date of Insertion: 08/01/22 Urinary Catheter Time of Insertion: 06:33 Data 08/04/22 04:50 08/04/22 04:50 A&P Assessment and plan (1) Cauda equina spinal cord injury: Discussed at length with the patient to continue to work with physical therapy may be sitting up in the chair with the brace today. Discussed with the nurse patient needs to have a bowel movement and therefore an enema as needed. Still awaiting pathology reports but the patient is requesting consultation with Dr. Portillo. Continue incentive spirometry for pulmonary toilet. Lovenox is begun for DVT prophylaxis. (2) Fusion of spine, thoracolumbar region: (3) Lumbar spine tumor: Attestations Medical Necessity Statement*: defer to medical team Coding Level of Care Code Acute Code for Chg Fwd Diagnoses Cauda equina spinal cord injury S34.3XXA Fusion of spine, thoracolumbar region M43.25 Lumbar spine tumor D49.2
[2022-08-04] MEDS: docusate sodium 100 mg Capsule PO ×2 (08:28→18:10)
[2022-08-04] MEDS: dexamethasone 10 mg/mL INJ 4 MG IVP (08:28)
[2022-08-04] MEDS: HYDROcodone-acetaminophen 5-325 mg Tablet PO ×2 (08:28→18:29)
[2022-08-04] MEDS: budesonide 0.5 mg/2 mL Neb INHALATION ×2 (09:04→19:46)
[2022-08-04] MEDS: ipratropium-albuterol 3 mL Neb INHALATION ×2 (09:04→19:46)
--- NOTE | 2022-08-04 11:17 | PM.PN ---
Subjective Subjective: Giovanny reports he is doing okay. He has some pain. Legs are about the same to a little bit better. We discussed extensively about rehabilitation as well as need for follow-up with oncology. Medications: Reviewed: Yes Vitals/I&O/Wt Last Vital Signs Temp 98.5 F 08/04/22 08:00 Pulse 86 08/04/22 09:05 Resp 18 08/04/22 09:05 BP 108/64 08/04/22 08:00 Pulse Ox 91 08/04/22 09:05 O2 Del Method 08/04/22 09:05 O2 Flow Rate 4 08/04/22 09:05 08/03/22 08/04/22 08/04/22 22:59 06:59 14:59 Intake Total 240 / 240 Output Total 500 / 1500 1800 / 3300 1450 / 1450 Balance -500 / -1140 -1800 / -2940 -1210 / -1210 Physical Exam Narrative: General exam no distress Cardiovascular: Regular rate and rhythm Respiratory: Diminished breath sounds but no wheezing or crackles. Currently on 5 L of oxygen. Abdomen soft nontender positive bowel sounds demonstrates Lizarraga, urine clear Extremities no cyanosis clubbing or edema Neuro. Strength appears to be improving lower extremities Urinary Catheter Management: Straight: Cath Placed During This Visit: yes Reason for Continuing Indwelling Catheter: Other Urinary Catheter Date of Insertion: 08/01/22 Urinary Catheter Time of Insertion: 06:33 Data 08/04/22 04:50 08/04/22 04:50 A&P Assessment and plan (1) Cord compression: Postoperative day #3 status post decompression, multiple level fusion, instrumentation, laminectomy Tissue was obtained by surgery, regarding mass. Pathology is not yet back Changed to oral dexamethasone. Suspect tomorrow he can take this once daily for 2 days and then discontinue if continues to make improvement Will go ahead and initiate Lovenox, 30 mg subcutaneous daily today Overall is making improvement but will need rehabilitation. Discharge planning arranging. He has been accepted at [facility] tomorrow. I visited with [facility], as well as Dr. Cuellar. He will need follow-up with oncology in approximately 2 weeks. He will need to see oncology here as well as radiation oncology. He will also need to see Dr. Sparrow. Hopefully at that time pathology will be back, wound will show enough healing that he can initiate therapy with radiation and possibly chemotherapy (2) Urinary incontinence: Secondary to spinal cord compression. Had significant urinary retention Continue Lizarraga placed in the emergency department. Continue Lizarraga currently (3) Hyponatremia: Mild, likely secondary to malignancy Overall stable No need for laboratory tomorrow (4) Hypertension: Blood pressure soft. Lisinopril discontinued Blood pressure adequate currently Plan History of prostate cancer. PSA today is not elevated. I think his malignancy in his spine currently is likely metastatic lung cancer. Acute postoperative blood loss anemia. Hemoglobin decreased to 10.2 but appears stable. No need for transfusion. COPD. DuoNeb every 6 hours, budesonide. Wean oxygen. Incentive spirometry. Tobacco dependency Full code Lovenox for DVT prophylaxis, to be started today with SCDs Will need rehabilitation placement. Attestations Medical Necessity Statement*: Needs continued hospitalization pending rehabilitation placement Diagnoses Cord compression G95.20 Urinary incontinence R32 Hyponatremia E87.1 Hypertension I10
--- NOTE | 2022-08-04 12:59 | PC.SOCIAL ---
Pg 2 IMM Explained to pt Pg 2 IMM. No questions voiced. Provided pt a copy. Initialed, dated, & timed a copy & placed in chart.
[2022-08-04] MEDS: bisacodyl 10 mg Supp PR (14:24)
[2022-08-04] MEDS: dexamethasone 4 mg Tablet PO (18:10)
[2022-08-04] MEDS: polyethylene glycol 3350 Pkt 17 gm PO (18:11)
[2022-08-05] VITALS (8 sets, daily range): BP systolic 94–122; BP diastolic 62–72; PULSE 71–94; RESP 15–21; TEMP 36.4–37; O2SAT 90–94
[2022-08-05] MEDS: HYDROcodone-acetaminophen 5-325 mg Tablet PO (04:50)
[2022-08-05] MEDS: docusate sodium 100 mg Capsule PO (08:49)
[2022-08-05] MEDS: polyethylene glycol 3350 Pkt 17 gm PO (08:49)
[2022-08-05] MEDS: dexamethasone 4 mg Tablet PO (08:49)
[2022-08-05] MEDS: budesonide 0.5 mg/2 mL Neb INHALATION (09:02)
[2022-08-05] MEDS: ipratropium-albuterol 3 mL Neb INHALATION (09:02)
--- NOTE | 2022-08-05 09:16 | P.PN_ITS ---
Subjective Subjective: POD 4 Patient in good spirits this morning, has been working with physical therapy.? He states that his legs are improving everyday.? He has family present this morning. Patient states he has had a bowel movement. Denies shortness of breath chest pain or headaches. Vitals/I&O/Wt Last Vital Signs Temp 97.8 F 08/05/22 08:00 Pulse 74 08/05/22 09:03 Resp 16 08/05/22 09:03 BP 104/65 08/05/22 08:00 Pulse Ox 91 08/05/22 09:03 O2 Del Method 08/05/22 09:03 O2 Flow Rate 4 08/05/22 09:03 08/04/22 08/05/22 08/05/22 22:59 06:59 14:59 Intake Total 720 / 1200 480 / 1680 120 / 120 Output Total 1650 / 3100 1150 / 4250 Balance -930 / -1900 -670 / -2570 120 / 120 Physical Exam Narrative: Patient presents alert and oriented x3 with a good general appear ance normal mood and affect.? Normal coordination normal stability.? Mild tenderness around the incisional site with the incision appear to be clean and dry.? No signs of erythema or drainage.? No signs of infection.? Patient denies any fevers or chills.? 4/5 motor strength both lower extremities with negative straight leg raise bilaterally.? Calves are supple no medial thigh tenderness.? Pulses are 1+ at the dorsalis pedis and posterior tibial region.? Good capillary refill throughout improving sensation light touch both lower extremities.? Dull sensation through the abdominal region Urinary Catheter Management: Straight: Cath Placed During This Visit: yes Reason for Continuing Indwelling Catheter: Acute Urinary Retention or Obstruction Urinary Catheter Date of Insertion: 08/01/22 Urinary Catheter Time of Insertion: 06:33 Data 08/04/22 04:50 08/04/22 04:50 A&P Assessment and plan (1) Fusion of spine, thoracolumbar region: Continue to work with physical therapy once transferred to the rehab facility more advanced therapy will continue. Continue senna spirometry for pulmonary toilet. Continue the [place] J collar with SOMI extension brace. We will see him back in the office in 1 to 2 weeks for wound check. (2) Cauda equina spinal cord injury: Attestations Medical Necessity Statement*: Defer to medical team Coding Level of Care Code Acute Code for Chg Fwd Diagnoses Fusion of spine, thoracolumbar region M43.25 Cauda equina spinal cord injury S34.3XXA
--- NOTE | 2022-08-05 11:32 | P.DS_ITS ---
Discharge Providers Date of Admission: 08/01/22 11:57 Date of Discharge: August 05, 2022 Attending Provider at Admission: Ines Mata MD Attending Provider at Discharge: Vineet Amaya MD Primary Care Provider: JANEL Napier Diagnoses at Discharge Discharge Diagnosis (1) Fusion of spine, thoracolumbar region: Status: Acute (2) Cauda equina spinal cord injury: Status: Acute Reason for Visit Reason for Visit: numbness in legs Hospital Course Hospital Course Giovanny Lockwood is a 72 year old male with history of COPD, hypertension, and prostate cancer presenting with 2 days of bilateral lower extremity numbness and weakness.? The patient reports gradual worsening of the sx since onset, along with some left chest and upper back discomfort with coughing.? He was seen in the ER on 07/31 for the upper back discomfort and was subsequently found to have a large left suprahilar lung mass on chest x-ray.? The patient also notes that within the last 2 days, he has lost the sensation of voiding and has urinated on himself.? He has never had the symptoms before, and states that he has been following up with Dr. Callejas for his prostate cancer and has had normal biannual PSA screenings.? The patient denies loss of bowel function, but notes he has not defecated in 2 days. He does note any recent weight changes or N/V. He denies fever, seizures, syncope, or any other symptoms at this time. He is on 2L O2 on physical examination but does not report any significant SOB. Patient was admitted to [facility] for bilateral lower extremity weakness and numbness secondary to cord compression by metastatic tumor encasement and compression centered at T3, with metastatic involvement of T2, T3, T4 vertebral bodies. In addition there was T8 metastatic involvement with epidural extension of tumor with mild cord compression. Received steroid therapy, orthopedic service was consulted, underwent decompression multiple level fusion instrumentation laminectomy, tolerated surgery well, had postoper ative anemia clinically monitored, overall clinically did well, worked with physical therapy, will be discharged back to [place] [facility], discharged on a Decadron taper, hydrocodone for pain control, Continue the [place] J collar with SOMI extension brace, for follow-up with orthopedic service for patient's urinary continence secondary to spinal cord compression, had urinary retention, Lizarraga catheter placed, will be discharged with Lizarraga catheter in place, with follow-up with urology as outpatient Had hyponatremia during his hospitalization, mild, likely secondary to malignancy, follow-up repeat BMP on Sunday Hypertension, blood pressures have been soft, hold lisinopril For patient's left lung mass, metastatic spinal mass, follow-up with oncology, biopsy pending For lung mass, and COPD follow-up with pulmonary Physical Exam Const: COMMON NORMALS: no acute distress and patient oriented x3 HENMT: OTHER: C-collar in place Resp: COMMON NORMALS: normal respiratory effort, No retractions, No use of accessory muscles and clear to auscultation bilaterally AUSCULTATION: clear to auscultation bilaterally Cardio: COMMON NORMALS: regular rate, regular rhythm, S1 normal heart sound present and S2 normal heart sound present RATE: regular rate RHYTHM: regular rhythm HEART SOUNDS: S1 normal heart sound present and S2 normal heart sound present GI: COMMON NORMALS: Normal to inspection, nondistended, normoactive bowel sounds present and non-tender Extremity: COMMON NORMALS: no pedal edema Neuro: COMMON NORMALS: patient oriented x3 Psych: COMMON NORMALS: mental status grossly normal Urinary Catheter Management: Straight: Cath Placed During This Visit: yes Reason for Continuing Indwelling Catheter: Acute Urinary Retention or Obstruction Urinary Catheter Date of Insertion: 08/01/22 Urinary Catheter Time of Insertion: 06:33 Discharge Data Studies Completed and Pending Completed Studies During Hospitalization Category Date Time Status XR chest 1V portable [id number] Stat Exams 08/01/22 06:48 Completed XR lumbar spine min 4V [id number] Routine Exams 08/01/22 17:34 Completed MR cervical spine wo/w [id number] Stat MRI 08/01/22 08:15 Completed MR lumbar spine wo/w con [id number] Stat MRI 08/01/22 07:58 Completed MR thoracic spine wo/w [id number] Stat MRI 08/01/22 Completed Pending at discharge Category Date Time Status Pathology: Surgical [PTH] Routine Pth 08/01/22 17:04 Received Radiology Impressions Thoracic Spine MRI 08/01/22 00:00 IMPRESSION: 1. Significant metastatic bone and soft tissue involvement throughout the thoracic spine. 2. Metastatic tumor encasement and compression upon the thoracic cord centered at T3. Metastatic involvement of the T2, T3 and T4 vertebral bodies. Most significant involvement at T3. 3. Metastatic tumor extends into the foramina bilaterally predominantly at T3-4 with involvement of the nerve roots and contiguously to surround the thoracic cord. Additional paravertebral soft tissue involvement. 4. T8 metastatic involvement with epidural extension of tumor with mild cord compression. 5. L1 bony metastasis. 6. Bulky lymphadenopathy in the AP window. Notified Dr. Perez at 08/01/2022 10:21 AM. Chest X-Ray 08/01/22 06:48 IMPRESSION: Left hilar mass and focal opacity in the perihilar left lung consistent with neoplasm as visualized on chest CT. Lumbar Spine MRI 08/01/22 07:58 IMPRESSION: 1. Osseous metastatic involvement as described above including T12, L1, L2, L3 and in the first 2 sacral segments. 2. Only 4 nonrib-bearing lumbar vertebral bodies are identified. 3. Extensive metastatic involvement of L3 with epidural tumor causing mild compression of the thecal sac but no high-grade central stenosis. 4. Epidural tumor involvement at the L3-4 level with mild encroachment into the RIGHT subarticular recess and along the RIGHT L3-4 nerve root. Cervical Spine MRI 08/01/22 08:15 IMPRESSION: 1. No cervical cord compression. 2. Metastatic bone involvement of the LEFT lateral C3 vertebral body and facet. 3. Tumor encasement and involvement of the upper thoracic cord is reidentified. Described on the prior MRI of the thoracic spine. Lumbar Spine X-Ray 08/01/22 17:34 IMPRESSION: Intraoperative imaging during fusion and decompression surgery. Laboratory Results WBC 11.8 10^3/uL (4.0-10.0) H 08/04/22 04:50 RBC 3.20 10^6/uL (4.1-5.3) L 08/04/22 04:50 Hgb 10.4 g/dL (11.7-16.6) L 08/04/22 04:50 Hct 30.8 % (42.0-52.0) L 08/04/22 04:50 MCV 96.3 fl (80-94) H 08/04/22 04:50 MCH 32.5 pg (28.0-34.0) 08/04/22 04:50 MCHC 33.8 g/dL (30.0-36.0) 08/04/22 04:50 RDW 11.9 % (12.1-15.1) L 08/04/22 04:50 Plt Count 136 10^3/cmm (130-400) 08/04/22 04:50 MPV 10.8 fL (7.4-10.4) H 08/04/22 04:50 Neut % (Auto) 84.5 % 08/04/22 04:50 Lymph % (Auto) 7.9 % 08/04/22 04:50 [place] % (Auto) 6.7 % 08/04/22 04:50 Eos % (Auto) 0.0 % 08/04/22 04:50 Baso % (Auto) 0.1 % 08/04/22 04:50 Neut # (Auto) 10.00 10^3/uL (1.8-7.7) H 08/04/22 04:50 Lymph # (Auto) 0.9 10^3/uL (0.8-4.8) 08/04/22 04:50 [place] # (Auto) 0.8 10^3/uL (0.2-0.9) 08/04/22 04:50 Eos # (Auto) 0.0 10^3/uL (0.0-0.8) 08/04/22 04:50 Baso # (Auto) 0.0 10^3/uL (0.0-0.1) 08/04/22 04:50 Nucleated RBC % (auto) 0 % 08/04/22 04:50 Nucleated RBCs # 0.0 /100WBC 08/04/22 04:50 PT 13.60 SECONDS (12.1-14.9) 08/01/22 06:12 INR 1.01 (0.8-1.2) 08/01/22 06:12 APTT 27.5 SECONDS (23.9-36.7) 08/01/22 06:12 Sodium 136 mmol/L (136-145) 08/04/22 04:50 Potassium 4.5 mmol/L (3.5-5.1) 08/04/22 04:50 Chloride 101 mmol/L (98-107) 08/04/22 04:50 Carbon Dioxide 27 mmol/L (22-29) 08/04/22 04:50 Anion Gap 12.5 (5-19) 08/04/22 04:50 BUN 24 mg/dL (8-23) H 08/04/22 04:50 Creatinine 0.6 mg/dL (0.7-1.2) L 08/04/22 04:50 GFR Calculation Not Reportable 08/04/22 04:50 Glucose 113 mg/dL (65-115) 08/04/22 04:50 Calculated Osmolality 287 mOsm/kg (285-295) 08/04/22 04:50 Calcium 8.2 mg/dL (8.5-10.5) L 08/04/22 04:50 Magnesium 1.8 mg/dL (1.7-2.3) 08/02/22 05:11 Total Bilirubin 0.6 mg/dL (0.15-1.2) 08/02/22 05:11 AST 25 U/L (0-40) 08/02/22 05:11 ALT 17 U/L (0-41) 08/02/22 05:11 Alkaline Phosphatase 58 U/L (40-130) 08/02/22 05:11 Total Protein 4.9 g/dL (6.6-8.7) L D 08/02/22 05:11 Albumin 3.1 g/dL (3.5-5.2) L 08/02/22 05:11 Globulin 1.8 g/dL (1.3-4.6) 08/02/22 05:11 Prostate Specific Ag 0.833 ng/mL (0-4) 08/01/22 06:12 Urine Color Yellow (Yellow) 08/01/22 06:30 Urine Appearance Clear (CLEAR) 08/01/22 06:30 Urine pH 5 (5-7) 08/01/22 06:30 Ur Specific [place] 1.020 (1.005-1.030) 08/01/22 06:30 Urine Protein Neg (Negative) 08/01/22 06:30 Urine Glucose (UA) Norm (Normal) 08/01/22 06:30 Urine Ketones Negative (Negative) 08/01/22 06:30 Urine Blood 2+ (Negative) H 08/01/22 06:30 Urine Nitrate Negative (Negative) 08/01/22 06:30 Urine Bilirubin Neg (Negative) 08/01/22 06:30 Urine Urobilinogen Norm mg/dL (Negative) 08/01/22 06:30 Ur Leukocyte Esterase Negative (Negative) 08/01/22 06:30 Urine RBC 5-10 /hpf (0-2) H 08/01/22 06:30 Urine WBC 0-4 /hpf (0-5) H 08/01/22 06:30 Ur Squamous Epith Cells 0-4 /hpf (0-5) H 08/01/22 06:30 Amorphous Sediment Not Reportable 08/01/22 06:30 Urine Bacteria Trace /hpf (NONE) 08/01/22 06:30 Vitals Last Vital Signs Temp 97.8 F 08/05/22 08:00 Pulse 74 08/05/22 09:03 Resp 16 08/05/22 09:03 BP 104/65 08/05/22 08:00 Pulse Ox 91 08/05/22 09:03 O2 Del Method 08/05/22 09:03 O2 Flow Rate 4 08/05/22 09:03 Discharge Plan Discharge Patient Disposition: Xfer Intermediate Care Fac Condition: Stable Prescriptions: New docusate sodium 100 mg Capsule 100 mg PO BID 30 Days Qty: 60 0RF polyethylene glycol 3350 17 gram Powder In Packet 17 g PO DAILY PRN (Reason: constipation) 30 Days Qty: 30 0RF dexamethasone 4 mg tablet See Rx Instructions .ROUTE .COMPLEX Qty: 6 0RF Rx Instructions: 1 tab for 3 days, 0.5 tab for 3 days, 0.5 tab every other day for 3 days Continued albuterol sulfate [ProAir HFA] 90 mcg/actuation HFA aerosol inhaler 2 inh inhalation QID PRN (Reason: Shortness Of Breath) triamcinolone acetonide 0.1 % cream 1 applic TOPICAL DAILY PRN (Reason: Rash) fluticasone propion-salmeterol 250-50 mcg/dose blister with device 1 inh inhalation BID (DME) Intraoperative Neuromonitoring See Rx Instructions .Route .MEDSUPPLY Qty: 1 0RF Rx Instructions: As directed Absorbine Horse Liniment 1 applic topical PRN PRN (Reason: Pain) Tylenol Ex Str Rapid Release 500 mg Tablet 1,000 mg PO Q6H PRN (Reason: Pain) lisinopril 40 mg Tablet 20 mg PO QAM Flonase 50 mcg/actuation [place],Suspension 1 spray INTRANASAL DAILY PRN (Reason: Allergy Symptoms) Vitamin D3 25 mcg (1,000 unit) Capsule 25 mcg PO DAILY PRN (Reason: unknown) Discontinued hydrocodone-acetaminophen 5-325 mg tablet 1 tab PO Q8H PRN (Reason: pain) Qty: 12 0RF Discharge Orders: Discharge Order (Routine); Ordered 08/05/22 Ordered By: Vineet Amaya Referrals: Rohit Nath MD [Physician] - 1 month Trip Callejas MD [Physician] - 1 week (neurogenic bladder) Jacob Lopez MD [Hospitalist] - 2 weeks (follow up spinal malignancy) Stella See FNP [Primary Care Provider] - 4-7 days Branden Cuellar MD [Staff Physician] - 2 weeks (follo wup malignancy) Discharge Diet: Cardiac Discharge Activity: Resume usual activity and Increase activity as tolerated Activity Restrictions/Additional Instructions: -For your neurogenic bladder, maintain Lizarraga catheter, needs to be changed in 1 month, it was placed 08/01/2022 -Needs to follow-up with urology for neurogenic bladder, postvoid residual, possible removal, in 1 week -Needs to follow-up with hematology oncology in 2 weeks -Needs to follow-up pathology with hematology and oncology in 2 weeks -Needs to follow-up with pulmonary in 1 month -Continue steroid taper as prescribed Thank you for choosing [facility] for your care! The following is a list of instructions, from your provider, to follow upon your discharge to ensure you have the optimal recovery from your recent injury or surgery. Follow-up care is a mackey part of your treatment and safety. Be sure to make and go to all appointments and call your doctor if you are having problems. If you do not already have a follow-up appointment made, call Dr. Sparrow's] office in the next 1-3 days to make follow up appointment for 1 weeks at [phone]. It is also a good idea to know your test results and keep a list of the medicines you take. Medications will be prescribed for you at your provider's discretion. These medications are to be used as instructed; if they are taken more often that prescribed they will not be refilled early and in most cases will not be refilled at all. > When a refill is needed, you should contact edwin trevizo 2-3 business days before your prescription runs out. Medications will NOT be refilled by events traffic controller providers after hours! > Many pain medications contain Tylenol (Acetaminophen). Do not consume more than 4,000 mg of Tylenol per day in total with any combination of medications. > Pain medications can cause constipation. Please use an over the counter stool softener as directed, while taking pain medications. Consult your local pharmacist with questions or recommendations on stool softeners. If constipation persists, contact our office or your primary care provider. > While under our care, you are not to receive pain medications or other controlled substances from any other provider unless our office is notified and approves. Any attempts to do so will result in refusal to prescribe any further pain medications and possible dismissal from our practice. ? Walking is essential for the healing process after surgery. We would like you to slowly advance your walking. This should be done on relatively flat clear ground (inside or out) or can be done on a treadmill. Remember this goal does not have to happen all at once, slowly increase your distance and duration. This can be broken into more more than one walk per day as tolerated. Patients who walk as directed after surgery rarely require Physical Therapy. In the unlikely event this issue arises your provider will direct hospital staff to make the appropriate arrangements. ? No lifting over 5 pounds {a gallon of milk) or bending/twisting until further notice. Each of these activities places an unnecessary amount of stress onto the body and can impede the delicate healing process. > Instead of bending at the waist, keep your back straight and bend at t he knees. > Instead of twisting your torso, keep your back straight and turn your entire body with your feet. ? You may sleep in any position which makes you comfortable. Many patients find comfort sleeping in a reclining chair. It is not abnormal to have difficulty sleeping for the first several weeks following your surgery. We recommend trying Benadry! or Tylenol PM as directed to help with your sleeping difficulties. Both medications are over the counter and available without prescription. ? NO SMOKING!!! Smoking dramatically increases the probability of developing postoperative wound infections. ? Common complaints after lumbar and/or thoracic spine surgery include, but are not limited to: numbness and/or tingling in the legs, pain around the incision and surrounding tissues, muscle spasms, or stiffness of the middle to low back. Contact our office if these symptoms persist or if an acute change occurs. ? No driving for the first 3-5days, and not while taking narcotics until seen at your follow-up appointment and cleared. There are no restrictions for riding on short trips, however if you take a longer trip, arrangements should be made to make regular stops to get out of the vehicle and stretch . ? Swelling is an unfortunate event that will take place with any surgery and is the primary source of your postoperative discomfort. While walking and regular approved activities helps control inflammation, there are additional steps you can take to minimize swelling. > Place ice over the surgical site and surrounding tissue for twenty minutes, followed by applying a low/medium heat (heating pad) for an additional twenty minutes every 1-2 hours as needed for painrelief. > You may use of over the counter anti-inflammatory medications (Ibuprofen, Motrin, Aleve, Advil, etc) as directed on the package label. These types of medicines will significantly reduce the amount of discomfort you experience after surgery from swelling. It should be noted that if you have and allergy to any of these medications, or a history of ulcers or kidney disease you should consult you primary care provider prior to starting these medi cations. Discharge Attestations Time Spent in Discharge Care*: greater than 30 min Quality Metrics Clinical Quality Measures [ No reported AMI, CVA or VTE this stay] Coding Level of Care Code 83301 Diagnoses Fusion of spine, thoracolumbar region M43.25 Cauda equina spinal cord injury S34.3XXA
== END 2022-08-05 16:04 | DRG 29 ==
LOC: ER 06:18 → ER IP 07:07 → MEDSURG 17:48
PROVIDERS: Internal Medicine; Orthopaedic Surgery; Admitting Provider Internal Medicine; Emergency Provider Family Medicine; PCP Nurse Practitioner; Visit Provider Family Medicine
PROC: 0RG Upper Joints, Fusion (ICD-10-PCS; principal; 2022-08-01 12:00)
PROC: 0RG Upper Joints, Fusion (ICD-10-PCS; CPT 63003; 2022-08-01 12:00)
DX: G95.29 Other cord compression (principal); C34.12 Malignant neoplasm of upper lobe, left bronchus or lung; C79.51 Secondary malignant neoplasm of bone; N13.8 Other obstructive and reflux uropathy; E87.1 Hypo-osmolality and hyponatremia; C79.49 Secondary malignant neoplasm of other parts of nervous system; N40.1 Benign prostatic hyperplasia with lower urinary tract symptoms; N39.490 Overflow incontinence; Z85.46 Personal history of malignant neoplasm of prostate; I10 Essential (primary) hypertension; Z92.3 Personal history of irradiation; F17.200 Nicotine dependence, unspecified, uncomplicated; N31.9 Neuromuscular dysfunction of bladder, unspecified; J44.9 Chronic obstructive pulmonary disease, unspecified; K59.00 Constipation, unspecified
CPT/HCPCS: 36415; 51702; 71045; 72110; 72156; 72157; 72158; 76000; 80048; 80053; 81001; 83735; 84153; 85014; 85018; 85025; 85610; 85730; 88307; 88311; 88342; 93005; 94640; 96365; 96375; 97110; 97161; 97530; 99285; A9577; C1713; J0330; J0690; J1100; J1170; J1885; J2270; J2370; J2405; J2704; J3010; J3370; J3490; J7030; J7040; J7626; J8540; P9045